=== PATIENT | male | born 1955 | race Caucasian/White ===

== ENCOUNTER 2016-07-17 13:43 | Inpatient (IN) | payer OTHER ==
[~2016-07-17] VITALS: Ht 167.6 cm; Wt 133.0 kg
[2016-07-17] MEDS ORDERED: SODIUM CHLORIDE 0.9% 1000ML 1,000 ML IV STA (14:12)
[2016-07-17] MEDS ORDERED: HYDROmorphone INJ 1 MG/ML SYR IV STA (14:13)
[2016-07-17] MEDS ORDERED: ACETAMINOPHEN 500 MG TAB PO STA (14:13)
[2016-07-17 14:20] LABS: BASO % 0.1 %; BASO ABS # 0.02 K/uL (0-0.2); COMPLETE YES; HEMATOCRIT 43.3 % (42-52); IG% 0.4 %; LYMPH % 19.5 %; LYMPH ABS # 2.71 K/uL (1.2-3.4); MEAN CELL VOLUME 87.8 fL (80-100); MEAN CORPUSCULAR HEMOGLOBIN 31.4 pg (25-34); MEAN CORPUSCULAR HGB CONC 35.8 g/dl (32-36); MEAN PLATELET VOLUME 10.6 fL (7.4-10.4); MONO % 10.8 %; NEUT % 69.2 %; PLATELET COUNT 193 K/uL (130-400); RED BLOOD COUNT 4.93 M/uL (4.7-6.1)
[2016-07-17 14:31] LABS: INR 1.1 (0.9-1.1); PROTHROMBIN TIME (PATIENT) 11.8 SECONDS (9.0-12.0)
[2016-07-17 14:34] LABS: ALT/SGPT 29 U/L (12-78); BLOOD UREA NITROGEN 16 mg/dl (7-18); BUN/CREATININE RATIO 12.2 (10-20); CARBON DIOXIDE 24 mmol/L (21-32); CHLORIDE 100 mmol/L (98-107); GLUCOSE 118 mg/dl (70-99); MAGNESIUM 1.8 mg/dl (1.8-2.4); POTASSIUM 3.7 mmol/L (3.5-5.1); SODIUM 136 mmol/L (136-145)
[2016-07-17] MEDS ORDERED: PIPERACILLIN/TAZOBACTAM 4.5 GM/100ML D5W IV STA (14:37)
[2016-07-17] MEDS ORDERED: VANCOMYCIN INJ 2,800 MG in SODIUM CHLORIDE 0.9% 500ML 500 ML IV STA (14:37)
[2016-07-17 14:39] LABS: ALKALINE PHOSPHATASE 60 U/L (45-117); AST/SGOT 20 U/L (15-37); CKMB/CK RATIO 0.2 (0-3.0)
[2016-07-17] MEDS ORDERED: ATOR-54 PO (14:48)
[2016-07-17] MEDS ORDERED: LISI-461 PO (14:48)
[2016-07-17] MEDS ORDERED: SITA50TA3 PO (14:48)
[2016-07-17] MEDS ORDERED: OMEP20TA PO (14:48)
[2016-07-17] MEDS ORDERED: CITA10TA8 PO (14:48)
[2016-07-17] MEDS ORDERED: GLIM4TAB2 PO (14:59)
[2016-07-17] MEDS ORDERED: BENZ100C84 PO (14:59)
[2016-07-17] MEDS ORDERED: PRED20TA PO (14:59)
[2016-07-17] MEDS ORDERED: LSN20 PO (14:59)
[2016-07-17] MEDS ORDERED: CITA40TA12 PO (14:59)
[2016-07-17] MEDS ORDERED: ATOR-24 PO (14:59)
[2016-07-17] MEDS ORDERED: SITA100T3 PO (14:59)
[2016-07-17 16:00] VITALS: O2SAT 95; Ht 167.6 cm; Wt 133.0 kg
[2016-07-17] MEDS ORDERED: ONDANSETRON INJ 2 MG/ML 2 ML VIAL IV PRN (16:00)
[2016-07-17] MEDS ORDERED: SILD1TAB39 PO (16:09)
[2016-07-17] MEDS ORDERED: TYL325X PO (16:10)
[2016-07-17] MEDS ORDERED: DEXTROSE 50% 50 ML SYR IV PRN (16:15)
[2016-07-17] MEDS ORDERED: GLUCOSE 40% GEL 15 GM TUBE PO PRN (16:15)
[2016-07-17] MEDS ORDERED: GLUCAGON FOR INJ 1 MG VIAL SQ PRN (16:15)
[2016-07-17] MEDS ORDERED: GLUCOSE 10 TABS/TUBE PO PRN (16:15)
[2016-07-17] MEDS ORDERED: VANCOMYCIN CONSULT ACTIVE PRN (16:45)
[2016-07-17] MEDS ORDERED: PIPERACILL/TAZOBAC CONSULT ACTIVE PRN (16:45)
[2016-07-17] MEDS ORDERED: MoRPHine SULFATE 4 MG/ML 1 ML CARP\\VIAL IV PRN (18:15)
--- NOTE | 2016-07-17 18:50 | History and Physical ---
History & Physical Date & Time of Service: Jul 17, 2016 at 15:56 Chief Complaint: Pain/Swelling/Hardness In Rt Groin Primary Care Physician: Michael Melendez D.O. History of Present Illness Source: patient, spouse ( at bedside), clinic records This is a 61 year old male with PMH of DM type 2, hypertension, obesity, depression, and other problems listed below who presents to the ED with right lower extremity pain. Approximately 4 days ago patient became ill with fever up to 103, postnasal drip, cough with white sputum, and right thigh "soreness". He was seen in clinic by Madhavi Wilkerson PA-C 3 days ago and was started on prednisone and Tessalon Perles for suspected viral illness. Influenza PCR was negative. Cough has improved. Patient did not mention the thigh pain in clinic because it was mild. Then over past few days thigh pain worsened and has become severe. Starting 2 days ago noticed erythema of the right thigh which has been increasing in area. He has a small healing abrasion on right anterior knee from scraping it on concrete while kneeling working in his garage. He persists with fever up to 103.2 at home this morning and 105 at an urgent care today before presenting to ER. He also reports chills, fatigue, and decreased PO intake, dizziness upon standing. Had dysuria a few days ago which resolved. Denies nasal congestion, ear ache, sore throat, chest pain, palpitations, SOB, nausea, vomiting, diarrhea, urinary frequency. He denies recent antibiotics or hospitalization. Past Medical/Surgical History Medical Problems: (1) Depression Status: Chronic (2) DM type 2 (diabetes mellitus, type 2) Status: Chronic (3) Hyperlipidemia Status: Chronic (4) Hypertension Status: Chronic (5) Renal cyst Status: Chronic Surgical Problems: (1) H/O colonoscopy with polypectomy Status: Chronic Family History Cardiac disorder MOTHER Diabetes mellitus MOTHER FH: cancer MOTHER (colon CA) Hypertension MOTHER Social History Smoking Status: Never Smoker Smokeless Tobacco Use: Yes (1 can per day) Alcohol Use: drinks once per week up to 12 beers in a day. counselled patient about cutting down or quitting alcohol. patient is agreeable. Drug Use: none Marital Status: Housing status: lives with significant other Occupational Status: employed (heavy truck driver) Allergies Coded Allergies: Aspirin (Verified Adverse Reaction, Unknown, vomiting, 07/17/16) Home Medications Scheduled Atorvastatin (Lipitor), 40 MG PO HS Citalopram Hydrobromide (Celexa), 40 MG PO HS Glimepiride (Glimepiride), 4 MG PO DAILY Lisinopril (Lisinopril), 20 MG PO DAILY Omeprazole (Omeprazole), 20 MG PO DAILY Prednisone (Prednisone), 2 TAB PO DAILY Sitagliptin Phosphate (Januvia), 100 MG PO DAILY Scheduled PRN Acetaminophen (Tylenol), 650 MG PO Q6 PRN for Pain or Fever Benzonatate (Tessalon Perles), 1 CAP PO TID PRN for Cough Sildenafil Citrate (Pulmonary (Sildenafil), 1 TAB PO UD PRN for intercourse Review of Systems Ten point ROS performed with pertinent positives and negatives noted in HPI. Physical Exam Vital Signs Date Time Temp Pulse Resp B/P Pulse Ox O2 Delivery O2 Flow Rate FiO2 07/17/16 15:36 77 18 142/67 96 Room Air 2.0 07/17/16 15:25 76 07/17/16 13:48 38.2 102 20 150/81 93 Room Air General Appearance: + obese, + pertinent finding (acutely ill appearing obese 61 year old male, not in distress) Head: normocephalic, atraumatic Eyes: normal inspection, PERRL, EOMI ENT: normal ENT inspection, hearing grossly normal, TMs normal, pharynx normal Neck: supple, trachea midline Respiratory/Chest: lungs clear, normal breath sounds, no respiratory distress, no accessory muscle use Cardiovascular: regular rate, rhythm, no murmur Abdomen/GI: normal bowel sounds, non tender, soft Extremities/Musculoskelatal: no pedal edema, + pertinent finding (no swelling of the right knee joint. right knee without pain on ROM) Neurologic/Psych: alert, normal mood/affect, oriented x 3, + pertinent finding (grossly nonfocal ) Skin: + pertinent finding (large area of erythema, warmth, and tenderness extending from anterior to medial and lateral right thigh. there is a small area of brighter erythema on the right medial thigh which is slightly indurated. no fluctuance appreciated. additionally on the anterior knee has a scabbed abrasion with small area of surrounding erthema and tenderness. ) Diagnostics Laboratory Results Results Past 24 Hours Test 3/18/17 14:00 Range/Units White Blood Count 13.90 4.8-10.8 K/uL Red Blood Count 4.93 4.7-6.1 M/uL Hemoglobin 15.5 14.0-18.0 g/dL Hematocrit 43.3 42-52 % Mean Corpuscular Volume 87.8 80-100 fL Mean Corpuscular Hemoglobin 31.4 25-34 pg Mean Corpuscular Hemoglobin Concent 35.8 32-36 g/dl Platelet Count 193 130-400 K/uL Mean Platelet Volume 10.6 7.4-10.4 fL Neutrophils (%) (Auto) 69.2 % Lymphocytes (%) (Auto) 19.5 % Monocytes (%) (Auto) 10.8 % Eosinophils (%) (Auto) 0.0 % Basophils (%) (Auto) 0.1 % Neutrophils # (Auto) 9.62 1.4-6.5 K/uL Lymphocytes # (Auto) 2.71 1.2-3.4 K/uL Monocytes # (Auto) 1.50 0.11-0.59 K/uL Eosinophils # (Auto) 0.00 0-0.5 K/uL Basophils # (Auto) 0.02 0-0.2 K/uL RDW Standard Deviation 44.9 36.4-46.3 fL RDW Coefficient of Variation 13.9 11.5-14.5 % Immature Granulocyte % (Auto) 0.4 % Immature Granulocyte # (Auto) 0.05 0.00-0.02 K/uL Prothrombin Time 11.8 9.0-12.0 SECONDS Prothromb Time International Ratio 1.1 0.9-1.1 Sodium Level 136 136-145 mmol/L Potassium Level 3.7 3.5-5.1 mmol/L Chloride Level 100 98-107 mmol/L Carbon Dioxide Level 24 21-32 mmol/L Anion Gap 12.0 3-11 mmol/L Blood Urea Nitrogen 16 7-18 mg/dl Creatinine 1.30 0.60-1.40 mg/dl Est Creatinine Clear Calc Drug Dose 76.1 ml/min Estimated GFR () 68.3 Estimated GFR (Non- 58.9 BUN/Creatinine Ratio 12.2 10-20 Random Glucose 118 70-99 mg/dl Calcium Level 9.0 8.5-10.1 mg/dl Magnesium Level 1.8 1.8-2.4 mg/dl Total Bilirubin 1.0 0.2-1 mg/dl Direct Bilirubin 0.2 0-0.2 mg/dl Aspartate Amino Transf (AST/SGOT) 20 15-37 U/L Alanine Aminotransferase (ALT/SGPT) 29 12-78 U/L Alkaline Phosphatase 60 45-117 U/L Total Creatine Kinase 315 39-308 U/L Creatine Kinase MB 0.5 0.5-3.6 ng/ml Creatine Kinase MB Ratio 0.2 0-3.0 Troponin I < 0.015 0-0.045 ng/ml Total Protein 7.8 6.4-8.2 gm/dl Albumin 3.7 3.4-5.0 gm/dl Microbiology Results 07/17/16 Blood Culture, Received Pending 07/17/16 Blood Culture, Received Pending Impression Assessment and Plan SEPSIS Secondary to RLE cellulitis Presents with tachycardia- resolved, fever, leukocytosis; no hypotension; lactic acid WNL Given Zosyn and vancomycin and 1 liter IVF's in ER Blood cultures pending Continue empiric Zosyn and vancomycin Check ultrasound of RLE to rule out abscess/ fluid collection DM TYPE 2 Hold oral agents Insulin sliding scale coverage Recent A1c in 06/2016 was 7.3 HYPERTENSION BP is stable Continue lisinopril DEPRESSION Stable, continue Celexa DYSLIPIDEMIA Continue statin FULL CODE DVT PROPHYLAXIS Heparin SQ Patient seen in collaboration with Dr. Dykes. Please see her addendum. I have seen, examined and discussed this patient with Esha Valderrama and I agree with the above note. Patient presents with fever and right thigh pain. Vitals notable for fever. PE: General- awake; alert; NAD Eyes- EOMI; no scleral icterus Neck- no stridor; trachea midline Lungs- CTA bilaterally; no wheezes/crackles Heart- RRR; no m/r/g Abdomen- soft; NT; nBS - no erythema/edema of scrotum Back- no gross abnormalities Extremities- no c/c/e; no deformity Neuro- no focal deficits Skin- large area of erythema, warmth of right inner thigh with central area of induration; no appreciable fluctuance Labs reviewed. Sepsis: Patient received IVF's in ED. Continue vancomycin and Zosyn for right thigh cellulitis. Blood cultures pending. Right thigh cellulitis: Continue vancomycin and Zosyn. Blood cultures pending. Ultrasound of thigh to evaluate for underlying fluid collection. Agree with remainder of plan as outlined above. VTE Prophylaxis VTE Risk Assessment Done? Y/N: Yes Risk Level: Moderate
[2016-07-17] MEDS: HYDROCODONE/ACETAMI 10/325 TAB PO PRN (18:54)
[2016-07-17 19:03] VITALS: BP 134/70; PULSE 86; TEMP 39.4; O2SAT 93
[2016-07-17] MEDS: CITALOPRAM 40 MG TAB PO SCH (19:41)
[2016-07-17] MEDS: ATORVASTATIN 40 MG TAB PO SCH (19:41)
[2016-07-17 20:00] VITALS: O2SAT 96
[2016-07-17 20:30] VITALS: TEMP 38.2
[2016-07-17] MEDS ORDERED: PNEUMOCOCCAL POLYSACCHARIDES 25 MCG/0.5 ML VIAL/SYR IM. ONE (20:30)
[2016-07-17] MEDS ORDERED: PNEUMOCOCCAL ADMINISTRATION CHARGE ONE (20:30)
--- NOTE | 2016-07-17 20:40 | EMERGENCY ROOM VISIT NOTE ---
History Report prepared by Chasidy: Ayala Nunez Under the Supervision of: Dr. Erasto Menezes M.D. First contact with patient: 14:06 Chief Complaint: GROIN PAIN Stated Complaint: PAIN/SWELLING/HARDNESS IN RT GROIN History of Present Illness The patient is a 61 year old male who presents to the Emergency Room with complaints of persistent pain in the upper right leg which started 2 days ago. He reports that the redness and pain started from an abrasion over his right knee. Over the last 2 days, the redness has spread up to his groin. He reports that it is painful and believes that it might be infected. He reports having a fever and feeling dizzy and lightheaded. His heart rate and blood sugars have been slightly elevated. He had some diarrhea today and loss of appetite. He denies any vomiting or abdominal pain. Source of History: patient Onset: 2 days ago Position: leg (right) Quality: other (pain) Timing: other (persistent) Associated Symptoms: + fevers, No abdominal pain, No vomiting Note: Pt reports dizziness, lightheadedness, loss of appetite. Review of Systems See HPI for pertinent positives & negatives. A total of 10 systems reviewed and were otherwise negative. Past Medical & Surgical Medical Problems: (1) Cellulitis (2) Depression (3) DM type 2 (diabetes mellitus, type 2) (4) Hyperlipidemia (5) Hypertension (6) Renal cyst (7) Sepsis Surgical Problems: (1) H/O colonoscopy with polypectomy Family History Patient reports no known family medical history. Social History Smoking Status: Never Smoker Marital Status: Housing Status: lives with family Occupation Status: employed Current/Historical Medications Scheduled Atorvastatin (Lipitor), 40 MG PO HS Citalopram Hydrobromide (Celexa), 40 MG PO HS Glimepiride (Glimepiride), 4 MG PO DAILY Lisinopril (Lisinopril), 20 MG PO DAILY Omeprazole (Omeprazole), 20 MG PO DAILY Prednisone (Prednisone), 2 TAB PO DAILY Sitagliptin Phosphate (Januvia), 100 MG PO DAILY Scheduled PRN Acetaminophen (Tylenol), 650 MG PO Q6 PRN for Pain or Fever Benzonatate (Tessalon Perles), 1 CAP PO TID PRN for Cough Sildenafil Citrate (Pulmonary (Sildenafil), 1 TAB PO UD PRN for intercourse Allergies Coded Allergies: Aspirin (Verified Adverse Reaction, Unknown, vomiting, 07/17/16) Physical Exam Vital Signs Date Time Temp Pulse Resp B/P Pulse Ox O2 Delivery O2 Flow Rate FiO2 07/17/16 15:36 36.8 77 18 142/67 96 Room Air 2.0 07/17/16 15:25 76 07/17/16 13:48 38.2 102 20 150/81 93 Room Air Physical Exam GENERAL: Patient is well appearing and in moderate distress. uncomfortable appearing HEENT: No acute trauma, normocephalic atraumatic, mucous membranes moist, no nasal congestion, no scleral icterus. NECK: No stridor, no adenopathy, no meningismus, trachea is midline. LUNGS: No dyspnea. Clear to auscultation and equal bilaterally. No wheeze, no rhonchi. HEART: Tachycardic rate and regular rhythm. No murmurs, rubs, gallops appreciated. ABDOMEN: Soft, nontender, bowel sounds positive, no masses appreciated, no peritonitis. BACK: No midline tenderness, no CVA tenderness EXTREMITIES: Normal motion all extremities, no cyanosis, no edema. NEUROLOGIC: Alert and oriented, no acute motor or sensory deficits, no focal weakness, cranial nerves grossly intact. SKIN: No jaundice, no diaphoresis. Tattoo on the left forearm. Large area of cellulitis extending from knee to groin on the right thigh over 50% of the thigh , markedly erythematous proximally with severe tenderness to palpation. Abrasion over the patella of the right knee with surrounding erythema. Medical Decision & Procedures Laboratory Results 07/17/16 14:00 Red Blood Count 4.93, Mean Corpuscular Volume 87.8, Mean Corpuscular Hemoglobin 31.4, Mean Corpuscular Hemoglobin Concent 35.8, Mean Platelet Volume 10.6, Neutrophils (%) (Auto) 69.2, Lymphocytes (%) (Auto) 19.5, Monocytes (%) (Auto) 10.8, Eosinophils (%) (Auto) 0.0, Basophils (%) (Auto) 0.1, Neutrophils # (Auto ) 9.62, Lymphocytes # (Auto) 2.71, Monocytes # (Auto) 1.50, Eosinophils # (Auto ) 0.00, Basophils # (Auto) 0.02 07/17/16 14:00 Test 07/17/16 14:00 White Blood Count 13.90 K/uL (4.8-10.8) Red Blood Count 4.93 M/uL (4.7-6.1) Hemoglobin 15.5 g/dL (14.0-18.0) Hematocrit 43.3 % (42-52) Mean Corpuscular Volume 87.8 fL (80-100) Mean Corpuscular Hemoglobin 31.4 pg (25-34) Mean Corpuscular Hemoglobin Concent 35.8 g/dl (32-36) Platelet Count 193 K/uL (130-400) Mean Platelet Volume 10.6 fL (7.4-10.4) Neutrophils (%) (Auto) 69.2 % Lymphocytes (%) (Auto) 19.5 % Monocytes (%) (Auto) 10.8 % Eosinophils (%) (Auto) 0.0 % Basophils (%) (Auto) 0.1 % Neutrophils # (Auto) 9.62 K/uL (1.4-6.5) Lymphocytes # (Auto) 2.71 K/uL (1.2-3.4) Monocytes # (Auto) 1.50 K/uL (0.11-0.59) Eosinophils # (Auto) 0.00 K/uL (0-0.5) Basophils # (Auto) 0.02 K/uL (0-0.2) RDW Standard Deviation 44.9 fL (36.4-46.3) RDW Coefficient of Variation 13.9 % (11.5-14.5) Immature Granulocyte % (Auto) 0.4 % Immature Granulocyte # (Auto) 0.05 K/uL (0.00-0.02) Prothrombin Time 11.8 SECONDS (9.0-12.0) Prothromb Time International Ratio 1.1 (0.9-1.1) Anion Gap 12.0 mmol/L (3-11) Est Creatinine Clear Calc Drug Dose 76.1 ml/min Estimated GFR () 68.3 Estimated GFR (Non- 58.9 BUN/Creatinine Ratio 12.2 (10-20) Calcium Level 9.0 mg/dl (8.5-10.1) Magnesium Level 1.8 mg/dl (1.8-2.4) Total Bilirubin 1.0 mg/dl (0.2-1) Direct Bilirubin 0.2 mg/dl (0-0.2) Aspartate Amino Transf (AST/SGOT) 20 U/L (15-37) Alanine Aminotransferase (ALT/SGPT) 29 U/L (12-78) Alkaline Phosphatase 60 U/L (45-117) Total Creatine Kinase 315 U/L (39-308) Creatine Kinase MB 0.5 ng/ml (0.5-3.6) Creatine Kinase MB Ratio 0.2 (0-3.0) Troponin I < 0.015 ng/ml (0-0.045) Total Protein 7.8 gm/dl (6.4-8.2) Albumin 3.7 gm/dl (3.4-5.0) Hepatitis C Antibody Screen NEG (NEG) Laboratory results as reviewed by me. Medications Administered Medications (Trade) Dose Ordered Sig/Georgi Route Start Time Stop Time Status Last Admin Dose Admin Sodium Chloride (Nss 1000ml) 1,000 ml @ 999 mls/hr Q1H1M STAT IV 07/17/16 14:12 07/17/16 15:12 DC 07/17/16 14:37 999 MLS/HR Hydromorphone HCl (Dilaudid Inj) 1 mg NOW STAT IV 07/17/16 14:13 07/17/16 14:14 DC 07/17/16 14:37 1 MG Acetaminophen (Tylenol Tab) 1,000 mg NOW STAT PO 07/17/16 14:13 07/17/16 14:15 DC 07/17/16 14:38 1,000 MG Piperacillin Sod/ Tazobactam Sod 4.5 gm 4.5 gm NOW STAT IV 07/17/16 14:37 07/17/16 14:39 DC 07/17/16 15:08 4.5 GM Vancomycin HCl/ Sodium Chloride (Vancomycin Inj/ Nss 500ml) 556 ml @ 200 mls/hr ONE STAT IV 07/17/16 14:37 07/17/16 17:23 DC 07/17/16 15:11 200 MLS/HR ECG Indication: tachycardia Rate (beats per minute): 84 Rhythm: sinus rhythm Findings: 1st degree AV block, no acute ischemic change, no ectopy ED Course 1408: The patient was evaluated in room C6. A complete history and physical exam was performed. 1412: NSS 1000 ml @ 999 mls/hr IV. 1413: Acetaminophen 1000 mg PO, Dilaudid Inj 1 mg IV. 1434: I reevaluated the patient. His heart rate and pain is improving after fluids and Dilaudid. 1437: Vancomycin HCL 2800 mg/Sodium Chloride 556 ml @ 200 mls/hr IV, Zosyn IV 4.5 gm IV. 1451: I discussed the patient's case with KAITLYNN Rodriguez. The patient will be evaluated for further management. 1457: Upon reevaluation, the patient is doing well. Discussed results and treatment plan with the patient. He verbalized understanding and agreement with the treatment plan. The patient will be evaluated for further management. Medical Decision Differential diagnoses: cellulitis, abscess , sepsis, DVT, allergic reaction, Kaylee's. 61 yr old male with DMII who arrives for evaluation of right thigh cellulitis. This is quite extensive, he has fever, tachy and elevated WBC meeting sepsis criteria. He does not have evidence of septic shock at this time. Given fluids , empiric abx. Pain meds helped well with discomfort. No clear evidence of abscess by exam though may need further imaging. No evidence of DVT by examination. With sepsis and PMH along with extent of cellulitis will need to come in for further treatment and evaluation. Consults Time Called: [phone] Consulting Physician: KAITLYNN Rodriguez Returned Call: [phone] Discussed the patient's case. The patient will be evaluated for further treatment and disposition. Impression Primary Impression: Cellulitis of right leg Additional Impression: Sepsis Scribe Attestation The scribe's documentation has been prepared under my direction and personally reviewed by me in its entirety. I confirm that the note above accurately reflects all work, treatment, procedures, and medical decision making performed by me. Departure Information Dispostion Being Evaluated By Hospitalist Referrals Michael Melendez D.O. (PCP) Patient Instructions My [facility] Problem Qualifiers Additional Impression: Sepsis Sepsis type: sepsis due to unspecified organism Qualified Codes: A41.9 - Sepsis, unspecified organism
--- NOTE | 2016-07-17 21:06 | Pharmacy Progress Note ---
Pharmacy Antibiotic Consult Date of Service: Jul 17, 2016. Pharmacy Dosing Scope Pharmacy is consulted to initiate Vancomycin and Zosyn IV dosing therapies for sepsis secondary to cellulitis in an obese patient (BMI greater than 35kg/m2; BMI= 46kg/m2), order appropriate labs and adjust drug dose/frequency. Subjective The patient is a 61 year old male admitted on Jul 17, 2016 at 15:37. Objective Height (Feet): 5 Height (Inches): 6.00 Weight (Kilograms): 129.900 Lab Results (24hrs): Laboratory Tests Test 07/17/16 14:00 BUN/Creatinine Ratio 12.2 Blood Urea Nitrogen 16 mg/dl Creatinine 1.30 mg/dl White Blood Count 13.90 K/uL Red Blood Count 4.93 M/uL Hemoglobin 15.5 g/dL Hematocrit 43.3 % Mean Corpuscular Volume 87.8 fL Mean Corpuscular Hemoglobin 31.4 pg Mean Corpuscular Hemoglobin Concent 35.8 g/dl Platelet Count 193 K/uL Mean Platelet Volume 10.6 fL Neutrophils (%) (Auto) 69.2 % Lymphocytes (%) (Auto) 19.5 % Monocytes (%) (Auto) 10.8 % Eosinophils (%) (Auto) 0.0 % Basophils (%) (Auto) 0.1 % Neutrophils # (Auto) 9.62 K/uL Lymphocytes # (Auto) 2.71 K/uL Monocytes # (Auto) 1.50 K/uL Eosinophils # (Auto) 0.00 K/uL Basophils # (Auto) 0.02 K/uL Micro Results: Item Value Date Time Blood Culture Received 07/17/16 1420 Blood Pending Blood Culture Received 07/17/16 1400 Blood Pending Recent Pertinent Medications Item Value Date Time Piperacillin Sod/ 4.5 gm 07/17/16 1437 Tazobactam Sod NOW STAT/IV 07/17/16 1508 (Zosyn Iv) Vancomycin HCl 556 ml @ 200 mls/hr 07/17/16 1437 2800 mg/Sodium ONE STAT/IV 07/17/16 1511 Chloride Assessment & Plan Pharmacy is consulted to initiate Vancomycin and Zosyn IV dosing therapies for sepsis secondary to cellulitis in an obese patient (BMI greater than 35kg/m2; BMI= 46kg/m2). VANCOMYCIN Loading dose: Vancomycin 2800 mg (~22mg/kg) IV X 1 dose in the ED then: Vancomycin 1700 mg (~13mg/kg) IV every 12 hours. * Due to patient's obese nature, Vancomycin weight based dose to be less than the recommended 15mg/kg in order to prevent Vancomycin accumulation and toxicity. * Estimated P'Kinetic levels: ke= 0.0676/hr, t1/2= 10 hrs * Goal trough level estimate: between 15 - 20 mcg/mL. * Trough level has been ordered for: ~30 minutes before the 4th dose. ZOSYN * Zosyn 4.5gm IV x 1 dose, the Zosyn 4.5gm IV every 8 hours extended infusion for sepsis / cellulitis in an obese patient with a CrCl greater than 20mL/min ( CrCl ~76mL/min). Pharmacy will continue to follow and will adjust dose/frequency as necessary. Thank you
--- NOTE | 2016-07-17 21:39 | DIAGNOSTIC IMAGING REPORT ---
Ultrasound right lower extremity RIGHT EXTREMITY NONVASCULAR LIMITED CLINICAL HISTORY: RLE cellulitis rule out abscess Right cellulitis TECHNIQUE: Ultrasound COMPARISON STUDY: None FINDINGS: Soft tissue edema within the right inguinal and thigh region. No evidence for abscess or collection IMPRESSION: Soft tissue edema. No evidence for abscess or collection Electronically signed by: Guzman King M.D. 07/17/2016 9:37 PM Dictated Date/Time: 07/17/2016 9:36 PM
[2016-07-17] MEDS: PIPERACILL/TAZOBAC IV 4.5 GM in DEXTROSE 5% 100ML IV SCH (23:11)
[2016-07-17] MEDS: INSULIN ASPART 100 UNITS/ML 3 ML PEN SC SCH (23:21)
[2016-07-17] MEDS: HEPARIN SOD 5000 UNIT/0.5 ML CARP SQ SCH (23:22)
[2016-07-17 23:42] VITALS: TEMP 37.1
[2016-07-18] VITALS (9 sets, daily range): BP systolic 105–147; BP diastolic 65–83; PULSE 79–88; TEMP 36.9–38.9; O2SAT 91–96
[2016-07-18] MEDS: VANCOMYCIN INJ 1,700 MG in SODIUM CHLORIDE 0.9% 500ML 500 ML IV SCH ×2 (02:27→13:46)
[2016-07-18] MEDS: HYDROCODONE/ACETAMI 10/325 TAB PO PRN ×4 (03:01→23:25)
[2016-07-18] MEDS: PIPERACILL/TAZOBAC IV 4.5 GM in DEXTROSE 5% 100ML IV SCH ×3 (05:44→23:06)
[2016-07-18] MEDS: HEPARIN SOD 5000 UNIT/0.5 ML CARP SQ SCH ×3 (05:47→23:05)
[2016-07-18 05:58] LABS: HEMATOCRIT 43.3 % (42-52); MEAN CELL VOLUME 87.3 fL (80-100); MEAN CORPUSCULAR HEMOGLOBIN 29.8 pg (25-34); MEAN CORPUSCULAR HGB CONC 34.2 g/dl (32-36); MEAN PLATELET VOLUME 10.6 fL (7.4-10.4); PLATELET COUNT 167 K/uL (130-400); RED BLOOD COUNT 4.96 M/uL (4.7-6.1); WHITE BLOOD COUNT 17.61 K/uL (4.8-10.8)
[2016-07-18 06:33] LABS: BUN/CREATININE RATIO 13.2 (10-20); CREATININE 1.6 mg/dl (0.60-1.40); POTASSIUM 3.7 mmol/L (3.5-5.1)
[2016-07-18] MEDS: LISINOPRIL 20 MG TAB PO SCH (08:21)
[2016-07-18] MEDS: PANTOprazole SOD 40 MG TAB PO SCH (08:21)
[2016-07-18] MEDS: INSULIN ASPART 100 UNITS/ML 3 ML PEN SC SCH ×4 (08:57→23:04)
[2016-07-18] MEDS ORDERED: HydrALAZINE HCL 20 MG/ML VIAL IV. PRN (09:30)
[2016-07-18] MEDS: SODIUM CHLORIDE 0.9% 1000ML 1,000 ML IV SCH (09:35)
[2016-07-18] MEDS: BENZONATATE 100MG CAP PO PRN ×2 (12:36→20:20)
--- NOTE | 2016-07-18 17:33 | Progress Note ---
Internal Med Progress Note Date of Service: Jul 18, 2016. Provider Documentation: SUBJECTIVE: still having pain in his right groin and thigh region mild temp spikes denies chest pain o sob feeling weak eating ok OBJECTIVE: Vital Signs-as noted below Exam: General-alert and oriented. Obese ENT-normal hearing Neck-no neck masses Lungs-cta b/l no wheezing no crackles Heart-s1 and s2 heard, regular rate and rhythm no murmurs Abdomen-soft bowel sounds present non tender no distension Extremities-erythematous changes involving anterior and medial thigh Neuro-alert and awake moves extremities Lab data as noted below. ASSESSMENT & PLAN: 61M with hx of DM presents with sepsis form cellulitis of RLE. SEPSIS RLE cellulitis on Empiric Zosyn and vancomycin#2 slow improvement cx pending on gentle fluids will monitor DM TYPE 2 Holding oral agents on Insulin sliding scale coverage Recent A1c in 06/2016 was 7.3 will monitor ARF cr 1.6 today holding lisinopril on gentle fluids f/u labs in am HYPERTENSION Holding lisinopril for ARF iv hydralazine prn DEPRESSION Stable on Celexa DYSLIPIDEMIA On statin FULL CODE DVT PROPHYLAXIS Heparin SQ Disposition to be determined Expect to discharge home and followup with PCP. Vital Signs: Date Time Temp Pulse Resp B/P Pulse Ox O2 Delivery O2 Flow Rate FiO2 07/18/16 16:00 Room Air 07/18/16 14:59 37.8 88 18 105/68 93 07/18/16 12:00 Room Air 07/18/16 11:49 37.7 79 16 118/66 91 Room Air 07/18/16 08:23 37.0 147/83 07/18/16 08:00 Room Air 07/18/16 07:21 38.9 83 16 127/66 94 Room Air 07/18/16 06:10 37.0 84 20 125/77 92 Room Air 07/18/16 04:00 96 Nasal Cannula 2.0 07/18/16 00:00 96 Nasal Cannula 2.0 07/17/16 23:42 37.1 07/17/16 20:30 38.2 07/17/16 20:00 96 Nasal Cannula 2.0 07/17/16 19:03 39.4 86 20 134/70 93 Lab Results: Results Past 24 Hours Test 07/17/16 19:57 07/18/16 05:40 07/18/16 11:39 07/18/16 16:12 Range/Units Bedside Glucose 164 206 164 70-99 mg/dl White Blood Count 17.61 4.8-10.8 K/uL Red Blood Count 4.96 4.7-6.1 M/uL Hemoglobin 14.8 14.0-18.0 g/dL Hematocrit 43.3 42-52 % Mean Corpuscular Volume 87.3 80-100 fL Mean Corpuscular Hemoglobin 29.8 25-34 pg Mean Corpuscular Hemoglobin Concent 34.2 32-36 g/dl RDW Standard Deviation 44.5 36.4-46.3 fL RDW Coefficient of Variation 13.9 11.5-14.5 % Platelet Count 167 130-400 K/uL Mean Platelet Volume 10.6 7.4-10.4 fL Sodium Level 135 136-145 mmol/L Potassium Level 3.7 3.5-5.1 mmol/L Chloride Level 99 98-107 mmol/L Carbon Dioxide Level 27 21-32 mmol/L Anion Gap 9.0 3-11 mmol/L Blood Urea Nitrogen 21 7-18 mg/dl Creatinine 1.60 0.60-1.40 mg/dl Est Creatinine Clear Calc Drug Dose 61.9 ml/min Estimated GFR () 53.1 Estimated GFR (Non- 45.8 BUN/Creatinine Ratio 13.2 10-20 Random Glucose 196 70-99 mg/dl Calcium Level 8.0 8.5-10.1 mg/dl
[2016-07-18] MEDS: CITALOPRAM 40 MG TAB PO SCH (20:14)
[2016-07-18] MEDS: ATORVASTATIN 40 MG TAB PO SCH (20:15)
[2016-07-18] MEDS: ACETAMINOPHEN 325 MG TAB PO PRN (20:20)
[2016-07-19] VITALS (7 sets, daily range): BP systolic 99–135; BP diastolic 63–74; PULSE 62–78; TEMP 36.9–37.8; O2SAT 93–96
[2016-07-19] MEDS ORDERED: VANCOMYCIN TROUGH SCH (01:30)
[2016-07-19] MEDS: VANCOMYCIN INJ 1,700 MG in SODIUM CHLORIDE 0.9% 500ML 500 ML IV SCH ×2 (02:23→14:04)
[2016-07-19] MEDS: PIPERACILL/TAZOBAC IV 4.5 GM in DEXTROSE 5% 100ML IV SCH ×3 (05:16→22:09)
[2016-07-19] MEDS: SODIUM CHLORIDE 0.9% 1000ML 1,000 ML IV SCH ×2 (05:17→10:46)
[2016-07-19] MEDS: HEPARIN SOD 5000 UNIT/0.5 ML CARP SQ SCH ×3 (05:19→22:11)
[2016-07-19 06:42] LABS: CREATININE 1.6 mg/dl (0.60-1.40)
[2016-07-19 07:31] LABS: ESTIMATED AVERAGE GLUCOSE 171 mg/dl; HA1C FLAG Normal (Normal)
[2016-07-19] MEDS: ACETAMINOPHEN 325 MG TAB PO PRN ×3 (07:48→20:40)
[2016-07-19] MEDS: PANTOprazole SOD 40 MG TAB PO SCH (07:48)
[2016-07-19] MEDS: INSULIN ASPART 100 UNITS/ML 3 ML PEN SC SCH ×4 (08:31→22:12)
[2016-07-19] MEDS: HYDROCODONE/ACETAMI 10/325 TAB PO PRN (12:30)
--- NOTE | 2016-07-19 13:00 | Pharmacy Progress Note ---
Pharmacy Antibiotic Prog Note Date of Service: Jul 19, 2016. Subjective: The patient is currently receiving the following antimicrobial therapy for treatment of RLE cellulitis: * Vancomycin 1700 mg IV every 12 hours * Zosyn 4.5 g IV every 8 hours The patient is currently on day # 4 of IV therapy. Objective: Height (Feet): 5 Height (Inches): 6.00 Weight (Kilograms): 133.000 Levels: Item Value Date Time Vancomycin Level Trough 13.1 mcg/ml 07/19/16 0130 Lab Results (24hrs): Laboratory Tests Test 07/19/16 05:15 Creatinine 1.60 mg/dl Micro Results: Item Value Date Time Blood Culture - Preliminary Resulted 07/17/16 1400 Blood NO GROWTH TO DATE. Blood Culture - Preliminary Resulted 07/17/16 1420 Blood NO GROWTH TO DATE. Assessment & Plan: Assessment 61 year old male admitted with sepsis secondary to RLE cellulitis (patient was tachycardic and febrile with leukocytosis at the time of admission). 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 Patient had a fever this am. Plan Vancomycin + Zosyn for treatment of RLE cellulitis Vancomycin * Trough level of 13.1 mcg/mL is near therapeutic. * Goal trough level estimate: between 15 - 20 mcg/mL. * I will continue dose of 1700 mg (13 mg/kg) IV every 12 hours for now. I suspect patient will start to accumulate drug over the next 24 hours due to obesity and rise in Scr from 1.3 to 1.6 mg/dL. * Trough level has been ordered for: . Zosyn * Continue 4.5 g IV every 8 hours for CrCl greater than 20 mL/min. Pharmacy will continue to follow and will adjust dose/frequency as necessary. Thank you
--- NOTE | 2016-07-19 17:16 | Progress Note ---
Medicine Progress Note Date & Time of Visit: Jul 19, 2016 at 16:56. 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 Last 24h: fever yesterday am and this morning to 100.4F Tolerating PO, no nausea, chest pain, trouble breathing, or leg pain outside of area of cellulitis This area of redness has spread beyond the line but may be normal healing process as he reports it feels much better than admission. 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 Pt agrees this is a likely etiology. Objective Last 8 Hrs Date Time Temp Pulse Resp B/P Pulse Ox O2 Delivery O2 Flow Rate FiO2 07/19/16 15:59 37.1 69 18 116/70 94 Room Air 07/19/16 12:05 37.5 76 18 121/74 96 Room Air 07/19/16 12:00 Room Air Physical Exam: GEN: WNWD, in no acute distress, alert and appropriate HEENT: NC/AT, normal sclerae CARDIO: reg rate, S1/2 heard without m/g/r LUNGS: CTA bilaterally, no crackles, rales or wheezes, good diaphragmatic excursion ABD: soft, non-tender, non-distended, no rebound or guarding, +BS EXTREMITY: RP and DP palpable 2+ bilat, no LE swelling or edema, extremities are warm and well-perfused R THIGH: area of significant redness that encompasses his entire anteriomedial thigh-does not cross inguinal line and doesn't extend posteriorly on the thigh and doesn't go all the way down to the knee; stops around mid- thigh. Area has two vesicles near inguinal ligament that are not draining and appear to contain serous fluid. Area underneath this is hot and indurated. NEURO: CN 2-12 grossly intact, sensation intact throughout MUSC: 5/5 strength throughout, no focal deficits SKIN: warm and dry and wound as above. Laboratory Results: 07/18/16 05:40 07/18/16 05:40 07/19/16 05:15 Test 07/17/16 14:00 07/17/16 14:29 07/18/16 05:40 07/19/16 01:30 Immature Granulocyte % (Auto) 0.4 % White Blood Count 13.90 K/uL (4.8-10.8) Red Blood Count 4.93 M/uL (4.7-6.1) 4.96 M/uL (4.7-6.1) Hemoglobin 15.5 g/dL (14.0-18.0) Hematocrit 43.3 % (42-52) Mean Corpuscular Volume 87.8 fL (80-100) 87.3 fL (80-100) Mean Corpuscular Hemoglobin 31.4 pg (25-34) 29.8 pg (25-34) Mean Corpuscular Hemoglobin Concent 35.8 g/dl (32-36) 34.2 g/dl (32-36) Platelet Count 193 K/uL (130-400) Mean Platelet Volume 10.6 fL (7.4-10.4) 10.6 fL (7.4-10.4) Neutrophils (%) (Auto) 69.2 % Lymphocytes (%) (Auto) 19.5 % Monocytes (%) (Auto) 10.8 % Eosinophils (%) (Auto) 0.0 % Basophils (%) (Auto) 0.1 % Neutrophils # (Auto) 9.62 K/uL (1.4-6.5) Lymphocytes # (Auto) 2.71 K/uL (1.2-3.4) Monocytes # (Auto) 1.50 K/uL (0.11-0.59) Eosinophils # (Auto) 0.00 K/uL (0-0.5) Basophils # (Auto) 0.02 K/uL (0-0.2) Immature Granulocyte # (Auto) 0.05 K/uL (0.00-0.02) Prothrombin Time 11.8 SECONDS (9.0-12.0) Prothromb Time International Ratio 1.1 (0.9-1.1) Magnesium Level 1.8 mg/dl (1.8-2.4) Total Bilirubin 1.0 mg/dl (0.2-1) Direct Bilirubin 0.2 mg/dl (0-0.2) Aspartate Amino Transf (AST/SGOT) 20 U/L (15-37) Alanine Aminotransferase (ALT/SGPT) 29 U/L (12-78) Alkaline Phosphatase 60 U/L (45-117) Total Creatine Kinase 315 U/L (39-308) Creatine Kinase MB 0.5 ng/ml (0.5-3.6) Creatine Kinase MB Ratio 0.2 (0-3.0) Troponin I < 0.015 ng/ml (0-0.045) Total Protein 7.8 gm/dl (6.4-8.2) Albumin 3.7 gm/dl (3.4-5.0) Hepatitis C Antibody Screen NEG (NEG) Bedside Lactic Acid Venous 1.40 mmol/L (0.90-1.70) RDW Standard Deviation 44.5 fL (36.4-46.3) RDW Coefficient of Variation 13.9 % (11.5-14.5) Anion Gap 9.0 mmol/L (3-11) BUN/Creatinine Ratio 13.2 (10-20) Calcium Level 8.0 mg/dl (8.5-10.1) Vancomycin Level Trough 13.1 mcg/ml (SEE COMMENT) Test 07/19/16 05:15 07/19/16 16:33 Est Creatinine Clear Calc Drug Dose 62.2 ml/min Estimated GFR () 53.1 Estimated GFR (Non- 45.8 Estimated Average Glucose 171 mg/dl Hemoglobin A1c 7.6 % (4.5-5.6) Bedside Glucose 164 mg/dl (70-99) Date/Time Source Procedure Growth Status 07/17/16 14:20 Blood Blood Culture - Preliminary NO GROWTH TO DATE. Resulted Last 24 Hours Test 07/18/16 20:24 07/19/16 01:30 07/19/16 05:15 07/19/16 07:22 Bedside Glucose 179 mg/dl 166 mg/dl Vancomycin Level Trough 13.1 mcg/ml Creatinine 1.60 mg/dl Est Creatinine Clear Calc Drug Dose 62.2 ml/min Estimated GFR () 53.1 Estimated GFR (Non- 45.8 Estimated Average Glucose 171 mg/dl Hemoglobin A1c 7.6 % Test 07/19/16 11:25 07/19/16 16:33 Bedside Glucose 179 mg/dl 164 mg/dl Diagnostic Imaging: US nonvascular RLE: IMPRESSION: Soft tissue edema. 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 1. RLE cellulitis-resuscitated from a sepsis standpoint. Cellulitis appears to be healing and feels improved to the patient. Cont IV Vanc and Zosyn at this time. BCx are negative and he is hemodynamically stable. Will transfer off telemetry at this time and cont to treat fevers which are occurring every morning and an expected part of the healing process looking at the severity of the wound. It appears this wound originated from chafing (as evidenced by the blistering) that was repetitive while driving his truck to and from [place] recently. 2. DMII-cont ISS coverage and appreciate inpatient glycemic pharmacist management 3. SUMEET-creat 1. on admission with normal baseline. Pt is tolerating PO, drinking water and has had IVF since admission. Stopping IVF and will reassess PRP in am. 4. HTN-Controlled, holding lisinopril in setting of SUMEET 5. Depression-stable on Celexa 6. Hyperlipidemia-cont Lipitor per home regimen FULL CODE DVT PROPHYLAXIS Heparin SQ Dispo-cont IV abx while continuing to fever and until redness starts to clear. May be a couple more days as an inpatient. Expect him to go home without home support needed. DO Juan Canokirkbride [facility] Hospitalist Continued [facility] stay due to: fever, multiple IV medications needed Discharge planning: home Current Inpatient Medications: Current Inpatient Medications Medications (Trade) Dose Ordered Sig/Georgi Route Start Time Stop Time Status Last Admin Dose Admin Acetaminophen (Tylenol Tab) 650 mg Q4H PRN PO 07/17/16 16:00 08/16/16 15:59 07/19/16 14:05 650 MG Ondansetron HCl (Zofran Inj) 4 mg Q6H PRN IV 07/17/16 16:00 08/16/16 15:59 Piperacillin Sod/ Tazobactam Sod (Consult) 1 ea UD PRN N/A 07/17/16 16:45 08/16/16 16:44 Vancomycin HCl (Consult) 1 ea UD PRN N/A 07/17/16 16:45 08/16/16 16:44 Insulin Aspart (novoLOG ASPART) SLIDING SCALE If C... ACHS SC 07/17/16 21:00 08/16/16 20:59 07/19/16 12:32 5 UNITS Glucose (Glucose 40% Gel) 15-30 GRAMS 15 GRAMS... UD PRN PO 07/17/16 16:15 08/16/16 16:14 Glucose (Glucose Chew Tab) 4-8 Tablets 4 Tabl... UD PRN PO 07/17/16 16:15 08/16/16 16:14 Dextrose (Dextrose 50% 50ML Syringe) 25-50ML OF 50% DW IV FOR... UD PRN IV 07/17/16 16:15 08/16/16 16:14 Glucagon (Glucagon Inj) 1 mg UD PRN SQ 07/17/16 16:15 08/16/16 16:14 Atorvastatin Calcium (Lipitor Tab) 40 mg HS PO 07/17/16 21:00 08/16/16 20:59 07/18/16 20:15 40 MG Benzonatate (Tessalon Perles Cap) 100 mg TID PRN PO 07/17/16 16:15 08/16/16 16:14 07/18/16 20:20 100 MG Citalopram Hydrobromide (celeXA TAB) 40 mg HS PO 07/17/16 21:00 08/16/16 20:59 07/18/16 20:14 40 MG Lisinopril (Zestril Tab) 20 mg DAILY PO 07/18/16 09:00 08/17/16 08:59 Future Hold 07/18/16 08:21 20 MG Pantoprazole Sodium (Protonix Tab) 40 mg QAM PO 07/18/16 09:00 08/17/16 08:59 07/19/16 07:48 40 MG Heparin Sodium (Porcine) 5000 unit 5,000 unit Q8 SQ 07/17/16 22:00 08/16/16 21:59 07/19/16 14:06 5,000 UNIT Piperacillin Sod/ Tazobactam Sod/ Dextrose (Zosyn Iv/D5 100ml) 120 ml @ 30 mls/hr Q8H IV 07/17/16 22:00 07/27/16 13:59 07/19/16 14:04 30 MLS/HR Morphine Sulfate (MoRPHine SULFATE INJ) 4 mg Q4 PRN IV 07/17/16 18:15 07/31/16 18:14 Acetaminophen/ Hydrocodone Bitart 1 tab 1 tab Q6 PRN PO 07/17/16 18:15 07/31/16 18:14 07/19/16 12:30 1 TAB Vancomycin HCl/ Sodium Chloride (Vancomycin Inj/ Nss 500ml) 534 ml @ 200 mls/hr Q12H IV 07/18/16 02:00 07/28/16 01:59 07/19/16 14:04 200 MLS/HR Hydralazine HCl 5 mg 5 mg Q6 PRN IV. 07/18/16 09:30 08/17/16 09:29 Sodium Chloride (Nss 1000ml) 1,000 ml @ 80 mls/hr [id number] IV 07/18/16 09:30 08/17/16 09:29 07/19/16 10:46 80 MLS/HR
[2016-07-19] MEDS ORDERED: GABAPENTIN 600 MG TAB PO SCH (20:15)
[2016-07-19] MEDS ORDERED: LORAZEPAM 1 MG TAB PO PRN (20:15)
[2016-07-19] MEDS ORDERED: LORAZEPAM 2 MG/ML 1 ML VIAL IV PRN (20:15)
[2016-07-19] MEDS: ATORVASTATIN 40 MG TAB PO SCH (20:41)
[2016-07-19] MEDS: CITALOPRAM 40 MG TAB PO SCH (20:41)
[2016-07-19] MEDS: BENZONATATE 100MG CAP PO PRN (20:41)
[2016-07-19] MEDS ORDERED: MULTI-VITAMIN INFUSION INJ 10 ML, THIAMINE HCL INJ 100 MG, FoLIC ACID INJ 1 MG in SODIU... IV ONE (21:00)
[2016-07-19] MEDS ORDERED: GABAPENTIN 1200MG LOADING DOSE PO SCH (22:00)
[2016-07-20] VITALS (7 sets, daily range): BP systolic 101–134; BP diastolic 58–85; PULSE 53–76; TEMP 36.8–37.6; O2SAT 93–97
[2016-07-20] MEDS: VANCOMYCIN INJ 1,700 MG in SODIUM CHLORIDE 0.9% 500ML 500 ML IV SCH ×2 (02:29→15:03)
[2016-07-20] MEDS: GABAPENTIN 600MG Q6H DOSE PO SCH ×2 (04:00→10:00)
[2016-07-20] MEDS: PIPERACILL/TAZOBAC IV 4.5 GM in DEXTROSE 5% 100ML IV SCH ×3 (06:02→22:11)
[2016-07-20 06:04] LABS: BASO % 0.3 %; BASO ABS # 0.03 K/uL (0-0.2); COMPLETE YES; EOS % 1.1 %; HEMATOCRIT 35.5 % (42-52); IG% 0.7 %; LYMPH % 15.5 %; MEAN CELL VOLUME 86.6 fL (80-100); MEAN CORPUSCULAR HGB CONC 34.6 g/dl (32-36); MONO % 6.3 %; NEUT % 76.1 %; PLATELET COUNT 159 K/uL (130-400); WHITE BLOOD COUNT 10.32 K/uL (4.8-10.8)
[2016-07-20] MEDS: HEPARIN SOD 5000 UNIT/0.5 ML CARP SQ SCH ×3 (06:05→22:17)
[2016-07-20 06:40] LABS: BUN/CREATININE RATIO 11.2 (10-20); CREATININE 1.4 mg/dl (0.60-1.40); POTASSIUM 3.7 mmol/L (3.5-5.1)
--- NOTE | 2016-07-20 07:57 | Progress Note ---
Internal Med Progress Note Date of Service: Jul 20, 2016. Provider Documentation: confided to RN last night about daily consumption 0f 5-6 beers/day. AWSS/DT precautions instituted . Will relay to AM provider. Vital Signs: Date Time Temp Pulse Resp B/P Pulse Ox O2 Delivery O2 Flow Rate FiO2 07/20/16 07:25 36.8 73 16 134/85 94 Room Air 07/20/16 03:48 36.9 76 18 131/64 93 Room Air 07/20/16 00:00 Room Air 07/19/16 23:42 36.9 62 16 131/72 93 07/19/16 22:20 37.0 07/19/16 20:00 Room Air 07/19/16 16:00 Room Air 07/19/16 15:59 37.1 69 18 116/70 94 Room Air 07/19/16 12:05 37.5 76 18 121/74 96 Room Air 07/19/16 12:00 Room Air 07/19/16 08:00 Room Air Lab Results: Results Past 24 Hours Test 07/19/16 11:25 07/19/16 16:33 07/19/16 20:23 07/20/16 05:33 Range/Units Bedside Glucose 179 164 159 70-99 mg/dl White Blood Count 10.32 4.8-10.8 K/uL Red Blood Count 4.10 4.7-6.1 M/uL Hemoglobin 12.3 14.0-18.0 g/dL Hematocrit 35.5 42-52 % Mean Corpuscular Volume 86.6 80-100 fL Mean Corpuscular Hemoglobin 30.0 25-34 pg Mean Corpuscular Hemoglobin Concent 34.6 32-36 g/dl Platelet Count 159 130-400 K/uL Mean Platelet Volume 11.0 7.4-10.4 fL Neutrophils (%) (Auto) 76.1 % Lymphocytes (%) (Auto) 15.5 % Monocytes (%) (Auto) 6.3 % Eosinophils (%) (Auto) 1.1 % Basophils (%) (Auto) 0.3 % Neutrophils # (Auto) 7.86 1.4-6.5 K/uL Lymphocytes # (Auto) 1.60 1.2-3.4 K/uL Monocytes # (Auto) 0.65 0.11-0.59 K/uL Eosinophils # (Auto) 0.11 0-0.5 K/uL Basophils # (Auto) 0.03 0-0.2 K/uL RDW Standard Deviation 44.4 36.4-46.3 fL RDW Coefficient of Variation 13.9 11.5-14.5 % Immature Granulocyte % (Auto) 0.7 % Immature Granulocyte # (Auto) 0.07 0.00-0.02 K/uL Sodium Level 137 136-145 mmol/L Potassium Level 3.7 3.5-5.1 mmol/L Chloride Level 100 98-107 mmol/L Carbon Dioxide Level 30 21-32 mmol/L Anion Gap 7.0 3-11 mmol/L Blood Urea Nitrogen 16 7-18 mg/dl Creatinine 1.40 0.60-1.40 mg/dl Est Creatinine Clear Calc Drug Dose 71.7 ml/min Estimated GFR () 62.4 Estimated GFR (Non- 53.8 BUN/Creatinine Ratio 11.2 10-20 Random Glucose 143 70-99 mg/dl Calcium Level 8.0 8.5-10.1 mg/dl Test 07/20/16 07:29 Range/Units Bedside Glucose 144 70-99 mg/dl
[2016-07-20] MEDS: MULTIVITAMIN TAB PO SCH (08:15)
[2016-07-20] MEDS: THIAMINE HCL 100 MG TAB PO SCH (08:15)
[2016-07-20] MEDS: PANTOprazole SOD 40 MG TAB PO SCH (08:16)
[2016-07-20] MEDS: INSULIN ASPART 100 UNITS/ML 3 ML PEN SC SCH ×4 (08:20→21:00)
[2016-07-20] MEDS ORDERED: CALCIUM GLUCONATE 10% 1,000 MG in SODIUM CHLORIDE 0.9% 50ML 50 ML IV ONE (09:30)
[2016-07-20] MEDS ORDERED: VANCOMYCIN TROUGH SCH (13:30)
--- NOTE | 2016-07-20 15:43 | Pharmacy Progress Note ---
Pharmacy Antibiotic Prog Note Date of Service: Jul 20, 2016. Subjective: The patient is currently receiving the following antimicrobial therapy for treatment of RLE cellulitis: Vancomycin 1700 mg IV every 12 hours Zosyn 4.5 g IV every 8 hours (ext. infusion) The patient is currently on day # 4 of IV therapy. Objective: Height (Feet): 5 Height (Inches): 6.00 Weight (Kilograms): 133.000 Levels: Item Value Date Time Vancomycin Level Trough 12.4 mcg/ml 07/20/16 1331 Lab Results (24hrs): Laboratory Tests Test 07/20/16 05:33 BUN/Creatinine Ratio 11.2 Blood Urea Nitrogen 16 mg/dl Creatinine 1.40 mg/dl White Blood Count 10.32 K/uL Red Blood Count 4.10 M/uL Hemoglobin 12.3 g/dL Hematocrit 35.5 % Mean Corpuscular Volume 86.6 fL Mean Corpuscular Hemoglobin 30.0 pg Mean Corpuscular Hemoglobin Concent 34.6 g/dl Platelet Count 159 K/uL Mean Platelet Volume 11.0 fL Neutrophils (%) (Auto) 76.1 % Lymphocytes (%) (Auto) 15.5 % Monocytes (%) (Auto) 6.3 % Eosinophils (%) (Auto) 1.1 % Basophils (%) (Auto) 0.3 % Neutrophils # (Auto) 7.86 K/uL Lymphocytes # (Auto) 1.60 K/uL Monocytes # (Auto) 0.65 K/uL Eosinophils # (Auto) 0.11 K/uL Basophils # (Auto) 0.03 K/uL Micro Results: Item Value Date Time Blood Culture - Preliminary Resulted 07/17/16 1400 Blood NO GROWTH TO DATE. Blood Culture - Preliminary Resulted 07/17/16 1420 Blood NO GROWTH TO DATE. C.difficile Toxin B Gene (PCR) - Final Complete 07/20/16 0835 Stool No C. difficile toxin B gene detected Assessment & Plan: Assessment 61 year old male admitted with sepsis secondary to RLE cellulitis (patient was tachycardic and febrile with leukocytosis at the time of admission). 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 Afebrile since 3/20 am. WBC count improved. Plan Vancomycin + Zosyn for treatment of RLE cellulitis Vancomycin * Trough level of 12.4 mcg/mL is near therapeutic. * Slight decrease in trough (13.1 mcg/mL on 07/19) likely due to improvement in Scr, although I am surprised this patient has not starting to accumulate drug in the setting of obesity). * Goal trough level estimate: between 15 - 20 mcg/mL. * Increase dose to 2100 mg (16 mg/kg) IV every 12 hours. * Trough level has been ordered for: . Zosyn * Continue 4.5 g IV every 8 hours for CrCl greater than 20 mL/min. Pharmacy will continue to follow and will adjust dose/frequency as necessary. Thank you
[2016-07-20] MEDS: ACETAMINOPHEN 325 MG TAB PO PRN (16:00)
[2016-07-20] MEDS: GABAPENTIN 600MG Q8H DOSE PO SCH (17:16)
[2016-07-20] MEDS: CITALOPRAM 40 MG TAB PO SCH (22:13)
[2016-07-20] MEDS: ATORVASTATIN 40 MG TAB PO SCH (22:13)
--- NOTE | 2016-07-20 23:16 | Progress Note ---
Medicine Progress Note Date & Time of Visit: Jul 20, 2016 at 1400. 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 Redness and pain improving as well as ROM. Started on gabapentin protocol for alcohol withdrawal-- states patient drinks cases of beer at home and on the road Afebrile overnight Denies CP or SOB. Blister popped with serous drainage. Objective Last 8 Hrs Date Time Temp Pulse Resp B/P Pulse Ox O2 Delivery O2 Flow Rate FiO2 07/20/16 21:17 36.9 62 20 113/73 95 Room Air 07/20/16 16:00 94 Room Air 07/20/16 15:55 37.6 53 18 101/58 94 Room Air Physical Exam: GEN: WNWD, in no acute distress, alert and appropriate HEENT: NC/AT, normal sclerae CARDIO: reg rate, S1/2 heard without m/g/r LUNGS: CTA bilaterally, no crackles, rales or wheezes, good diaphragmatic excursion ABD: soft, non-tender, non-distended, no rebound or guarding, +BS EXTREMITY: RP and DP palpable 2+ bilat, no LE swelling or edema, extremities are warm and well-perfused R THIGH: area of significant redness that encompasses his entire anteriomedial thigh-does not cross inguinal line and doesn't extend posteriorly on the thigh; weak redness extending beyond the knee joint but 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 Blistering has opened on upper part of thigh over hard indurated area or redness. NEURO: CN 2-12 grossly intact, sensation intact throughout MUSC: 5/5 strength throughout, no focal deficits SKIN: warm and dry and wound as above. Laboratory Results: 07/20/16 05:33 Red Blood Count 4.10, Mean Corpuscular Volume 86.6, Mean Corpuscular Hemoglobin 30.0, Mean Corpuscular Hemoglobin Concent 34.6, Mean Platelet Volume 11.0, Neutrophils (%) (Auto) 76.1, Lymphocytes (%) (Auto) 15.5, Monocytes (%) (Auto) 6.3, Eosinophils (%) (Auto) 1.1, Basophils (%) (Auto) 0.3, Neutrophils # (Auto) 7.86, Lymphocytes # (Auto) 1.60, Monocytes # (Auto) 0.65, Eosinophils # (Auto) 0.11, Basophils # (Auto) 0.03 07/20/16 05:33 Test 07/17/16 14:00 07/17/16 14:29 07/19/16 05:15 07/20/16 05:33 Prothrombin Time 11.8 SECONDS (9.0-12.0) Prothromb Time International Ratio 1.1 (0.9-1.1) Magnesium Level 1.8 mg/dl (1.8-2.4) Total Bilirubin 1.0 mg/dl (0.2-1) Direct Bilirubin 0.2 mg/dl (0-0.2) Aspartate Amino Transf (AST/SGOT) 20 U/L (15-37) Alanine Aminotransferase (ALT/SGPT) 29 U/L (12-78) Alkaline Phosphatase 60 U/L (45-117) Total Creatine Kinase 315 U/L (39-308) Creatine Kinase MB 0.5 ng/ml (0.5-3.6) Creatine Kinase MB Ratio 0.2 (0-3.0) Troponin I < 0.015 ng/ml (0-0.045) Total Protein 7.8 gm/dl (6.4-8.2) Albumin 3.7 gm/dl (3.4-5.0) Hepatitis C Antibody Screen NEG (NEG) Bedside Lactic Acid Venous 1.40 mmol/L (0.90-1.70) Estimated Average Glucose 171 mg/dl Hemoglobin A1c 7.6 % (4.5-5.6) White Blood Count 10.32 K/uL (4.8-10.8) Red Blood Count 4.10 M/uL (4.7-6.1) Hemoglobin 12.3 g/dL (14.0-18.0) Hematocrit 35.5 % (42-52) Mean Corpuscular Volume 86.6 fL (80-100) Mean Corpuscular Hemoglobin 30.0 pg (25-34) Mean Corpuscular Hemoglobin Concent 34.6 g/dl (32-36) Platelet Count 159 K/uL (130-400) Mean Platelet Volume 11.0 fL (7.4-10.4) Neutrophils (%) (Auto) 76.1 % Lymphocytes (%) (Auto) 15.5 % Monocytes (%) (Auto) 6.3 % Eosinophils (%) (Auto) 1.1 % Basophils (%) (Auto) 0.3 % Neutrophils # (Auto) 7.86 K/uL (1.4-6.5) Lymphocytes # (Auto) 1.60 K/uL (1.2-3.4) Monocytes # (Auto) 0.65 K/uL (0.11-0.59) Eosinophils # (Auto) 0.11 K/uL (0-0.5) Basophils # (Auto) 0.03 K/uL (0-0.2) RDW Standard Deviation 44.4 fL (36.4-46.3) RDW Coefficient of Variation 13.9 % (11.5-14.5) Immature Granulocyte % (Auto) 0.7 % Immature Granulocyte # (Auto) 0.07 K/uL (0.00-0.02) Anion Gap 7.0 mmol/L (3-11) Est Creatinine Clear Calc Drug Dose 71.7 ml/min Estimated GFR () 62.4 Estimated GFR (Non- 53.8 BUN/Creatinine Ratio 11.2 (10-20) Calcium Level 8.0 mg/dl (8.5-10.1) Test 07/20/16 13:31 07/20/16 22:06 Vancomycin Level Trough 12.4 mcg/ml (SEE COMMENT) Bedside Glucose 149 mg/dl (70-99) Date/Time Source Procedure Growth Status 07/17/16 14:20 Blood Blood Culture - Preliminary NO GROWTH TO DATE. Resulted 07/20/16 08:35 Stool C.difficile Toxin B Gene (PCR) - Final No C. difficile toxin B gene detected Complete Last 24 Hours Test 07/20/16 05:33 07/20/16 07:29 07/20/16 11:37 07/20/16 13:31 White Blood Count 10.32 K/uL Red Blood Count 4.10 M/uL Hemoglobin 12.3 g/dL Hematocrit 35.5 % Mean Corpuscular Volume 86.6 fL Mean Corpuscular Hemoglobin 30.0 pg Mean Corpuscular Hemoglobin Concent 34.6 g/dl Platelet Count 159 K/uL Mean Platelet Volume 11.0 fL Neutrophils (%) (Auto) 76.1 % Lymphocytes (%) (Auto) 15.5 % Monocytes (%) (Auto) 6.3 % Eosinophils (%) (Auto) 1.1 % Basophils (%) (Auto) 0.3 % Neutrophils # (Auto) 7.86 K/uL Lymphocytes # (Auto) 1.60 K/uL Monocytes # (Auto) 0.65 K/uL Eosinophils # (Auto) 0.11 K/uL Basophils # (Auto) 0.03 K/uL RDW Standard Deviation 44.4 fL RDW Coefficient of Variation 13.9 % Immature Granulocyte % (Auto) 0.7 % Immature Granulocyte # (Auto) 0.07 K/uL Sodium Level 137 mmol/L Potassium Level 3.7 mmol/L Chloride Level 100 mmol/L Carbon Dioxide Level 30 mmol/L Anion Gap 7.0 mmol/L Blood Urea Nitrogen 16 mg/dl Creatinine 1.40 mg/dl Est Creatinine Clear Calc Drug Dose 71.7 ml/min Estimated GFR () 62.4 Estimated GFR (Non- 53.8 BUN/Creatinine Ratio 11.2 Random Glucose 143 mg/dl Calcium Level 8.0 mg/dl Bedside Glucose 144 mg/dl 187 mg/dl Vancomycin Level Trough 12.4 mcg/ml Test 07/20/16 16:09 07/20/16 22:06 Bedside Glucose 158 mg/dl 149 mg/dl Date/Time Source Procedure Growth Status 07/20/16 08:35 Stool C.difficile Toxin B Gene (PCR) - Final No C. 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 1. RLE cellulitis-resuscitated from a sepsis standpoint. Cellulitis appears to be healing and feels improved to the patient. Cont IV Vanc and Zosyn at this time. BCx are negative and he is hemodynamically stable. It appears this wound originated from chafing (as evidenced by the blistering) that was repetitive while driving his truck to and from [place] recently. 2. DMII-cont ISS coverage and appreciate inpatient glycemic pharmacist management 3. SUMEET-creat up on admission with normal baseline. Pt is tolerating PO, drinking water and has had IVF since admission. Stopped IVF last night. Some improvement to 1.4 this morning. 4. HTN-Controlled, holding lisinopril in setting of SUMEET 5. Depression-stable on Celexa 6. Hyperlipidemia-cont Lipitor per home regimen 7. ETOH abuse-extensive per . Placed him on ETOH withdrawal protocol with gabapentin overnight. No apparent withdrawal. Last drink was roughly 2-3 days ago. FULL CODE DVT PROPHYLAXIS Heparin SQ Dispo-cont IV abx while continuing to fever and until redness starts to clear. May be a couple more days as an inpatient. Expect him to go home without home support needed. [facility] Continued [facility] stay due to: fever, multiple IV medications needed Discharge planning: home Current Inpatient Medications: Current Inpatient Medications Medications (Trade) Dose Ordered Sig/Georgi Route Start Time Stop Time Status Last Admin Dose Admin Acetaminophen (Tylenol Tab) 650 mg Q4H PRN PO 07/17/16 16:00 08/16/16 15:59 07/20/16 16:00 650 MG Ondansetron HCl (Zofran Inj) 4 mg Q6H PRN IV 07/17/16 16:00 08/16/16 15:59 Piperacillin Sod/ Tazobactam Sod (Consult) 1 ea UD PRN N/A 07/17/16 16:45 08/16/16 16:44 Vancomycin HCl (Consult) 1 ea UD PRN N/A 07/17/16 16:45 08/16/16 16:44 Insulin Aspart (novoLOG ASPART) SLIDING SCALE If C... ACHS SC 07/17/16 21:00 08/16/16 20:59 07/20/16 17:18 4 UNITS Glucose (Glucose 40% Gel) 15-30 GRAMS 15 GRAMS... UD PRN PO 07/17/16 16:15 08/16/16 16:14 Glucose (Glucose Chew Tab) 4-8 Tablets 4 Tabl... UD PRN PO 07/17/16 16:15 08/16/16 16:14 Dextrose (Dextrose 50% 50ML Syringe) 25-50ML OF 50% DW IV FOR... UD PRN IV 07/17/16 16:15 08/16/16 16:14 Glucagon (Glucagon Inj) 1 mg UD PRN SQ 07/17/16 16:15 08/16/16 16:14 Atorvastatin Calcium (Lipitor Tab) 40 mg HS PO 07/17/16 21:00 08/16/16 20:59 07/20/16 22:13 40 MG Benzonatate (Tessalon Perles Cap) 100 mg TID PRN PO 07/17/16 16:15 08/16/16 16:14 07/19/16 20:41 100 MG Citalopram Hydrobromide (celeXA TAB) 40 mg HS PO 07/17/16 21:00 08/16/16 20:59 07/20/16 22:13 40 MG Lisinopril (Zestril Tab) 20 mg DAILY PO 07/18/16 09:00 08/17/16 08:59 Future Hold 07/18/16 08:21 20 MG Pantoprazole Sodium (Protonix Tab) 40 mg QAM PO 07/18/16 09:00 08/17/16 08:59 07/20/16 08:16 40 MG Heparin Sodium (Porcine) 5000 unit 5,000 unit Q8 SQ 07/17/16 22:00 08/16/16 21:59 07/20/16 22:17 5,000 UNIT Piperacillin Sod/ Tazobactam Sod/ Dextrose (Zosyn Iv/D5 100ml) 120 ml @ 30 mls/hr Q8H IV 07/17/16 22:00 07/27/16 13:59 07/20/16 22:11 30 MLS/HR Morphine Sulfate (MoRPHine SULFATE INJ) 4 mg Q4 PRN IV 07/17/16 18:15 07/31/16 18:14 Acetaminophen/ Hydrocodone Bitart ([place] 10/325 Tab) 1 tab Q6 PRN PO 07/17/16 18:15 07/31/16 18:14 07/19/16 12:30 1 TAB Hydralazine HCl (HydrALAZINE INJ) 5 mg Q6 PRN IV. 07/18/16 09:30 08/17/16 09:29 Lorazepam (Ativan Tab) 1 mg ONE PRN PO 07/19/16 20:15 08/02/16 20:14 Lorazepam (Ativan Inj) 1 mg Q1H PRN IV 07/19/16 20:15 08/18/16 20:14 Thiamine HCl (Vitamin B-1 Tab) 100 mg QAM PO 07/20/16 09:00 08/19/16 08:59 07/20/16 08:15 100 MG Folic Acid (Folvite Tab) 1 mg QAM PO 07/20/16 09:00 08/19/16 08:59 07/20/16 08:15 1 MG Multivitamins (Multivitamin Tab) 1 tab QAM PO 07/20/16 09:00 08/19/16 08:59 07/20/16 08:15 1 TAB Gabapentin (Neurontin Tab) 600 mg Q8H PO 07/20/16 18:00 07/21/16 10:01 07/20/16 17:16 600 MG Gabapentin (Neurontin Tab) 600 mg Q12H PO 07/21/16 22:00 07/22/16 10:01 Gabapentin 600 mg 600 mg Q24H PO 07/23/16 10:00 07/23/16 10:01 Vancomycin HCl/ Sodium Chloride (Vancomycin Inj/ Nss 500ml) 542 ml @ 200 mls/hr Q12H IV 07/21/16 02:00 07/28/16 01:59
[2016-07-21] MEDS: VANCOMYCIN INJ 2,100 MG in SODIUM CHLORIDE 0.9% 500ML 500 ML IV SCH ×2 (01:44→12:47)
[2016-07-21] MEDS: GABAPENTIN 600MG Q8H DOSE PO SCH ×2 (01:44→10:02)
[2016-07-21] MEDS: BENZONATATE 100MG CAP PO PRN (01:44)
[2016-07-21] MEDS ORDERED: COUGH DROP (SUGAR FREE) LOZ 24 LOZ/1 BOX ONE (01:45)
[2016-07-21] MEDS: HEPARIN SOD 5000 UNIT/0.5 ML CARP SQ SCH ×3 (06:27→21:51)
[2016-07-21] MEDS: PIPERACILL/TAZOBAC IV 4.5 GM in DEXTROSE 5% 100ML IV SCH ×3 (06:42→21:57)
[2016-07-21 07:35] VITALS: BP 133/80; PULSE 68; TEMP 37; O2SAT 91
[2016-07-21] MEDS: THIAMINE HCL 100 MG TAB PO SCH (08:48)
[2016-07-21] MEDS: PANTOprazole SOD 40 MG TAB PO SCH (08:48)
[2016-07-21] MEDS: MULTIVITAMIN TAB PO SCH (08:49)
[2016-07-21] MEDS: INSULIN ASPART 100 UNITS/ML 3 ML PEN SC SCH ×4 (08:52→21:50)
--- NOTE | 2016-07-21 11:56 | Progress Note ---
Medicine Progress Note Date & Time of Visit: Jul 21, 2016 at 11:50. 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 -feels improved -pain still present but is able to ambulate -tolerating PO -febrile last night -area of redness is significantly improved Objective Last 8 Hrs Date Time Temp Pulse Resp B/P Pulse Ox O2 Delivery O2 Flow Rate FiO2 07/21/16 09:00 Room Air 07/21/16 07:35 37.0 68 16 133/80 91 Room Air Physical Exam: GEN: WNWD, in no acute distress, alert and appropriate HEENT: NC/AT, normal sclerae CARDIO: reg rate, S1/2 heard without m/g/r LUNGS: CTA bilaterally, no crackles, rales or wheezes, good diaphragmatic excursion ABD: protuberant, soft, non-tender, non-distended, no rebound or guarding, +BS EXTREMITY: RP and DP palpable 2+ bilat, no LE swelling or edema, extremities are warm and well-perfused R THIGH: area of significant redness that encompasses his entire anteromedial thigh-does not cross inguinal line and has decreased behind original line drawn in ER, draining blistering. NEURO: CN 2-12 grossly intact, sensation intact throughout MUSC: 5/5 strength throughout, no focal deficits SKIN: warm and dry and wound as above. 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 1. RLE cellulitis- Cellulitis continues to improve. Due to area of involvement cont IV Vanc and Zosyn at this time. BCx are negative and he remains hemodynamically stable. It appears this wound originated from chafing ( as evidenced by the blistering) that was repetitive while driving his truck to and from [place] recently. 2. DMII-cont ISS coverage and appreciate inpatient glycemic pharmacist management 3. SUMEET-creat up on admission with normal baseline. Pt is tolerating PO, drinking water and has had IVF since admission. Monitor PRP in am. 4. HTN-Controlled, holding lisinopril in setting of SUMEET 5. Depression-stable on Celexa 6. Hyperlipidemia-cont Lipitor per home regimen 7. ETOH abuse-extensive per . Placed him on ETOH withdrawal protocol with gabapentin. No apparent withdrawal at this time. FULL CODE DVT PROPHYLAXIS Heparin SQ Dispo-cont IV abx while continuing to fever overnight and until redness clears more. May be a couple more days as an inpatient. Expect him to go home without home support needed. [facility] Contin[facility] stay due to: fever, multiple IV medications needed Discharge planning: home Current Inpatient Medications: Current Inpatient Medications Medications (Trade) Dose Ordered Sig/Georgi Route Start Time Stop Time Status Last Admin Dose Admin Acetaminophen (Tylenol Tab) 650 mg Q4H PRN PO 07/17/16 16:00 08/16/16 15:59 07/20/16 16:00 650 MG Ondansetron HCl (Zofran Inj) 4 mg Q6H PRN IV 07/17/16 16:00 08/16/16 15:59 Piperacillin Sod/ Tazobactam Sod (Consult) 1 ea UD PRN N/A 07/17/16 16:45 08/16/16 16:44 Vancomycin HCl (Consult) 1 ea UD PRN N/A 07/17/16 16:45 08/16/16 16:44 Insulin Aspart (novoLOG ASPART) SLIDING SCALE If C... ACHS SC 07/17/16 21:00 08/16/16 20:59 07/21/16 08:52 6 UNITS Glucose (Glucose 40% Gel) 15-30 GRAMS 15 GRAMS... UD PRN PO 07/17/16 16:15 08/16/16 16:14 Glucose (Glucose Chew Tab) 4-8 Tablets 4 Tabl... UD PRN PO 07/17/16 16:15 08/16/16 16:14 Dextrose (Dextrose 50% 50ML Syringe) 25-50ML OF 50% DW IV FOR... UD PRN IV 07/17/16 16:15 08/16/16 16:14 Glucagon (Glucagon Inj) 1 mg UD PRN SQ 07/17/16 16:15 08/16/16 16:14 Atorvastatin Calcium (Lipitor Tab) 40 mg HS PO 07/17/16 21:00 08/16/16 20:59 07/20/16 22:13 40 MG Benzonatate (Tessalon Perles Cap) 100 mg TID PRN PO 07/17/16 16:15 08/16/16 16:14 07/21/16 01:44 100 MG Citalopram Hydrobromide (celeXA TAB) 40 mg HS PO 07/17/16 21:00 08/16/16 20:59 07/20/16 22:13 40 MG Lisinopril (Zestril Tab) 20 mg DAILY PO 07/18/16 09:00 08/17/16 08:59 Future Hold 07/18/16 08:21 20 MG Pantoprazole Sodium (Protonix Tab) 40 mg QAM PO 07/18/16 09:00 08/17/16 08:59 07/21/16 08:48 40 MG Heparin Sodium (Porcine) 5000 unit 5,000 unit Q8 SQ 07/17/16 22:00 08/16/16 21:59 07/21/16 06:27 5,000 UNIT Piperacillin Sod/ Tazobactam Sod/ Dextrose (Zosyn Iv/D5 100ml) 120 ml @ 30 mls/hr Q8H IV 07/17/16 22:00 07/27/16 13:59 07/21/16 06:42 30 MLS/HR Morphine Sulfate (MoRPHine SULFATE INJ) 4 mg Q4 PRN IV 07/17/16 18:15 07/31/16 18:14 Acetaminophen/ Hydrocodone Bitart ([place] 10/325 Tab) 1 tab Q6 PRN PO 07/17/16 18:15 07/31/16 18:14 07/19/16 12:30 1 TAB Hydralazine HCl (HydrALAZINE INJ) 5 mg Q6 PRN IV. 07/18/16 09:30 08/17/16 09:29 Lorazepam (Ativan Tab) 1 mg ONE PRN PO 07/19/16 20:15 08/02/16 20:14 Lorazepam (Ativan Inj) 1 mg Q1H PRN IV 07/19/16 20:15 08/18/16 20:14 Thiamine HCl (Vitamin B-1 Tab) 100 mg QAM PO 07/20/16 09:00 08/19/16 08:59 07/21/16 08:48 100 MG Folic Acid (Folvite Tab) 1 mg QAM PO 07/20/16 09:00 08/19/16 08:59 07/21/16 08:49 1 MG Multivitamins (Multivitamin Tab) 1 tab QAM PO 07/20/16 09:00 08/19/16 08:59 07/21/16 08:49 1 TAB Gabapentin (Neurontin Tab) 600 mg Q12H PO 07/21/16 22:00 07/22/16 10:01 Gabapentin 600 mg 600 mg Q24H PO 07/23/16 10:00 07/23/16 10:01 Vancomycin HCl/ Sodium Chloride (Vancomycin Inj/ Nss 500ml) 542 ml @ 200 mls/hr Q12H IV 07/21/16 02:00 07/28/16 01:59 07/21/16 01:44 200 MLS/HR
[2016-07-21 15:04] VITALS: BP 116/73; PULSE 69; TEMP 37.2; O2SAT 94
[2016-07-21] MEDS: ATORVASTATIN 40 MG TAB PO SCH (21:48)
[2016-07-21] MEDS: CITALOPRAM 40 MG TAB PO SCH (21:48)
[2016-07-21] MEDS: GABAPENTIN 600MG Q12H DOSE PO SCH (21:55)
[2016-07-21 23:11] VITALS: BP 120/79; PULSE 71; TEMP 36.6; O2SAT 95
[2016-07-22] MEDS: VANCOMYCIN INJ 2,100 MG in SODIUM CHLORIDE 0.9% 500ML 500 ML IV SCH (02:09)
[2016-07-22] MEDS: PIPERACILL/TAZOBAC IV 4.5 GM in DEXTROSE 5% 100ML IV SCH (05:54)
[2016-07-22] MEDS: HEPARIN SOD 5000 UNIT/0.5 ML CARP SQ SCH ×3 (06:00→22:00)
[2016-07-22] MEDS: INSULIN ASPART 100 UNITS/ML 3 ML PEN SC SCH ×4 (06:30→21:00)
[2016-07-22 06:37] LABS: HEMATOCRIT 34.4 % (42-52); MEAN CELL VOLUME 86.4 fL (80-100); MEAN CORPUSCULAR HEMOGLOBIN 30.2 pg (25-34); MEAN CORPUSCULAR HGB CONC 34.9 g/dl (32-36); MEAN PLATELET VOLUME 10.5 fL (7.4-10.4); PLATELET COUNT 187 K/uL (130-400); RED BLOOD COUNT 3.98 M/uL (4.7-6.1); WHITE BLOOD COUNT 8.36 K/uL (4.8-10.8)
[2016-07-22 07:14] LABS: BUN/CREATININE RATIO 9.9 (10-20); CALCIUM 8.3 mg/dl (8.5-10.1); CREATININE 1.1 mg/dl (0.60-1.40); POTASSIUM 3.3 mmol/L (3.5-5.1)
[2016-07-22 07:48] VITALS: BP 126/77; PULSE 65; TEMP 36.9; O2SAT 95
[2016-07-22] MEDS: PANTOprazole SOD 40 MG TAB PO SCH (09:58)
[2016-07-22] MEDS: GABAPENTIN 600MG Q12H DOSE PO SCH (09:59)
[2016-07-22] MEDS: MULTIVITAMIN TAB PO SCH (09:59)
[2016-07-22] MEDS: THIAMINE HCL 100 MG TAB PO SCH (10:00)
[2016-07-22] MEDS: POTASSIUM CHLORIDE 20 MEQ TABCR PO SCH ×2 (10:18→13:00)
--- NOTE | 2016-07-22 11:59 | Pharmacy Progress Note ---
Pharmacy Antibiotic Prog Note Date of Service: Jul 22, 2016. Subjective: The patient is currently on day # 6 of vancomycin and Zosyn IV therapy for R thigh cellulitis. Objective: Height (Feet): 5 Height (Inches): 6.00 Weight (Kilograms): 133.000 (BMI = 47) Levels: Item Value Date Time Vancomycin Level Trough 13.1 mcg/ml 07/19/16 0130 Vancomycin Level Trough 12.4 mcg/ml 07/20/16 1331 Random Vancomycin Level 19.6 mcg/ml 07/22/16 1045 Lab Results (24hrs): Laboratory Tests Test 07/22/16 06:19 BUN/Creatinine Ratio 9.9 Blood Urea Nitrogen 11 mg/dl Creatinine 1.10 mg/dl White Blood Count 8.36 K/uL Micro Results: Item Value Date Time C.difficile Toxin B Gene (PCR) - Final Complete 07/20/16 0835 Stool No C. difficile toxin B gene detected Blood Culture - Preliminary Resulted 07/17/16 1420 Blood NO GROWTH TO DATE. Blood Culture - Preliminary Resulted 07/17/16 1400 Blood NO GROWTH TO DATE. Recent Pertinent Medications: Item Value Date Time Vancomycin HCl 542 ml @ 200 mls/hr 07/21/16 0200 2100 mg/Sodium Q12H/IV 07/22/16 0209 Chloride Piperacillin Sod/ 120 ml @ 30 mls/hr 07/17/16 2200 Tazobactam Sod Q8H/IV 07/22/16 0554 4.5 gm/Dextrose Assessment & Plan: ASSESSMENT: * The patient has remained on vancomycin and Zosyn IV for cellulitis * Per the provider's notes yesterday, plan is to continue IV abx until the redness clears more * His SCr is improved today so I was concerned that the trough level may be a little low and ordered a random level a few hours early * Random level drawn ~3 hrs prior to when trough would be drawn is slightly supratherapeutic for goal trough, indicating that the trough level should be acceptable PLAN: * Continue vancomycin 2100 mg IV q12h * Recheck trough level on 07/25 * Goal trough ~15 for cellulitis indication Pharmacy will continue to follow and will adjust dose/frequency as necessary. Thank you
[2016-07-22] MEDS ORDERED: DOXYCYCLINE HYCLATE 100 MG CAP PO ONE (13:00)
[2016-07-22] MEDS ORDERED: VANCOMYCIN TROUGH SCH (13:30)
[2016-07-22 15:56] VITALS: BP 107/66; PULSE 63; TEMP 36.6; O2SAT 95
[2016-07-22] MEDS: BENZONATATE 100MG CAP PO PRN ×2 (18:00→21:07)
[2016-07-22 20:00] VITALS: O2SAT 96
[2016-07-22] MEDS: DOXYCYCLINE HYCLATE 100 MG CAP PO SCH (21:08)
[2016-07-22] MEDS: CITALOPRAM 40 MG TAB PO SCH (21:08)
[2016-07-22] MEDS: ATORVASTATIN 40 MG TAB PO SCH (21:08)
--- NOTE | 2016-07-22 22:18 | Progress Note ---
Medicine Progress Note Date & Time of Visit: Jul 22, 2016 at 12:26. 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 -afebrile overnight -feels improved, blisters still present and this is painful -tolerating PO -is otherwise asymptomatic Objective Last 8 Hrs Date Time Temp Pulse Resp B/P Pulse Ox O2 Delivery O2 Flow Rate FiO2 07/22/16 08:00 Room Air 07/22/16 07:48 36.9 65 18 126/77 95 Room Air Physical Exam: GEN: WNWD, in no acute distress, alert and appropriate HEENT: NC/AT, normal sclerae CARDIO: reg rate, S1/2 heard without m/g/r LUNGS: CTA bilaterally, no crackles, rales or wheezes, good diaphragmatic excursion ABD: protuberant, soft, non-tender, non-distended, no rebound or guarding, +BS EXTREMITY: RP and DP palpable 2+ bilat, no LE swelling or edema, extremities are warm and well-perfused R THIGH: area of significant redness that encompasses his entire anteromedial thigh-does not cross inguinal line and has decreased behind original line drawn in ER, draining blistering. There is more light pink streaking down his leg to the lower lateral leg- appears to be healing process-- new line placed around this area to look at tomorrow. NEURO: CN 2-12 grossly intact, sensation intact throughout MUSC: 5/5 strength throughout, no focal deficits SKIN: warm and dry and wound as above. Laboratory Results: 07/22/16 06:19 07/22/16 06:19 Test 07/17/16 14:00 07/17/16 14:29 07/19/16 05:15 07/20/16 05:33 Prothrombin Time 11.8 SECONDS (9.0-12.0) Prothromb Time International Ratio 1.1 (0.9-1.1) Magnesium Level 1.8 mg/dl (1.8-2.4) Total Bilirubin 1.0 mg/dl (0.2-1) Direct Bilirubin 0.2 mg/dl (0-0.2) Aspartate Amino Transf (AST/SGOT) 20 U/L (15-37) Alanine Aminotransferase (ALT/SGPT) 29 U/L (12-78) Alkaline Phosphatase 60 U/L (45-117) Total Creatine Kinase 315 U/L (39-308) Creatine Kinase MB 0.5 ng/ml (0.5-3.6) Creatine Kinase MB Ratio 0.2 (0-3.0) Troponin I < 0.015 ng/ml (0-0.045) Total Protein 7.8 gm/dl (6.4-8.2) Albumin 3.7 gm/dl (3.4-5.0) Hepatitis C Antibody Screen NEG (NEG) Bedside Lactic Acid Venous 1.40 mmol/L (0.90-1.70) Estimated Average Glucose 171 mg/dl Hemoglobin A1c 7.6 % (4.5-5.6) Immature Granulocyte % (Auto) 0.7 % White Blood Count 10.32 K/uL (4.8-10.8) Red Blood Count 4.10 M/uL (4.7-6.1) Hemoglobin 12.3 g/dL (14.0-18.0) Hematocrit 35.5 % (42-52) Mean Corpuscular Volume 86.6 fL (80-100) Mean Corpuscular Hemoglobin 30.0 pg (25-34) Mean Corpuscular Hemoglobin Concent 34.6 g/dl (32-36) Platelet Count 159 K/uL (130-400) Mean Platelet Volume 11.0 fL (7.4-10.4) Neutrophils (%) (Auto) 76.1 % Lymphocytes (%) (Auto) 15.5 % Monocytes (%) (Auto) 6.3 % Eosinophils (%) (Auto) 1.1 % Basophils (%) (Auto) 0.3 % Neutrophils # (Auto) 7.86 K/uL (1.4-6.5) Lymphocytes # (Auto) 1.60 K/uL (1.2-3.4) Monocytes # (Auto) 0.65 K/uL (0.11-0.59) Eosinophils # (Auto) 0.11 K/uL (0-0.5) Basophils # (Auto) 0.03 K/uL (0-0.2) Immature Granulocyte # (Auto) 0.07 K/uL (0.00-0.02) Test 07/20/16 13:31 07/22/16 06:19 07/22/16 10:45 07/22/16 20:51 Vancomycin Level Trough 12.4 mcg/ml (SEE COMMENT) Red Blood Count 3.98 M/uL (4.7-6.1) Mean Corpuscular Volume 86.4 fL (80-100) Mean Corpuscular Hemoglobin 30.2 pg (25-34) Mean Corpuscular Hemoglobin Concent 34.9 g/dl (32-36) RDW Standard Deviation 44.7 fL (36.4-46.3) RDW Coefficient of Variation 14.1 % (11.5-14.5) Mean Platelet Volume 10.5 fL (7.4-10.4) Anion Gap 8.0 mmol/L (3-11) Est Creatinine Clear Calc Drug Dose 91.2 ml/min Estimated GFR () 83.5 Estimated GFR (Non- 72.1 BUN/Creatinine Ratio 9.9 (10-20) Calcium Level 8.3 mg/dl (8.5-10.1) Random Vancomycin Level 19.6 mcg/ml Bedside Glucose 168 mg/dl (70-99) Date/Time Source Procedure Growth Status 07/17/16 14:20 Blood Blood Culture - Preliminary NO GROWTH TO DATE. Resulted 07/20/16 08:35 Stool C.difficile Toxin B Gene (PCR) - Final No C. difficile toxin B gene detected Complete Last 24 Hours Test 07/21/16 16:23 07/21/16 20:07 07/22/16 06:19 07/22/16 08:08 Bedside Glucose 140 mg/dl 193 mg/dl 127 mg/dl White Blood Count 8.36 K/uL Red Blood Count 3.98 M/uL Hemoglobin 12.0 g/dL Hematocrit 34.4 % Mean Corpuscular Volume 86.4 fL Mean Corpuscular Hemoglobin 30.2 pg Mean Corpuscular Hemoglobin Concent 34.9 g/dl RDW Standard Deviation 44.7 fL RDW Coefficient of Variation 14.1 % Platelet Count 187 K/uL Mean Platelet Volume 10.5 fL Sodium Level 140 mmol/L Potassium Level 3.3 mmol/L Chloride Level 103 mmol/L Carbon Dioxide Level 29 mmol/L Anion Gap 8.0 mmol/L Blood Urea Nitrogen 11 mg/dl Creatinine 1.10 mg/dl Est Creatinine Clear Calc Drug Dose 91.2 ml/min Estimated GFR () 83.5 Estimated GFR (Non- 72.1 BUN/Creatinine Ratio 9.9 Random Glucose 136 mg/dl Calcium Level 8.3 mg/dl Test 07/22/16 10:45 07/22/16 12:02 Random Vancomycin Level 19.6 mcg/ml Bedside Glucose 192 mg/dl Assessment & Plan 61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 1. RLE cellulitis- Cellulitis continues to improve. BCx are negative and he remains hemodynamically stable and afebrile overnight. It appears this wound originated from chafing (as evidenced by the blistering) that was repetitive while driving his truck to and from [place] recently. Will change to PO doxycycline at this time. If continues to improve would send him home tmrw or next day. 2. DMII-cont ISS coverage and appreciate inpatient glycemic pharmacist management--meeting inpatient goals 3. SUMEET-resolved. 4. HTN-Controlled, cont lisinopril 5. Depression-stable on Celexa 6. Hyperlipidemia-cont Lipitor per home regimen 7. ETOH abuse-extensive per . Placed him on ETOH withdrawal protocol with gabapentin. No apparent withdrawal at this time. FULL CODE DVT PROPHYLAXIS Heparin SQ Dispo-poss to home tomorrow. Cinthia Briceño DO [facility] Hospitalist Continued [facility] stay due to: fever, multiple IV medications needed Discharge planning: home Current Inpatient Medications: Current Inpatient Medications Medications (Trade) Dose Ordered Sig/Georgi Route Start Time Stop Time Status Last Admin Dose Admin Acetaminophen (Tylenol Tab) 650 mg Q4H PRN PO 07/17/16 16:00 08/16/16 15:59 07/20/16 16:00 650 MG Ondansetron HCl (Zofran Inj) 4 mg Q6H PRN IV 07/17/16 16:00 08/16/16 15:59 Piperacillin Sod/ Tazobactam Sod (Consult) 1 ea UD PRN N/A 07/17/16 16:45 08/16/16 16:44 Vancomycin HCl (Consult) 1 ea UD PRN N/A 07/17/16 16:45 08/16/16 16:44 Insulin Aspart (novoLOG ASPART) SLIDING SCALE If C... ACHS SC 07/17/16 21:00 08/16/16 20:59 07/21/16 21:50 2 UNITS Glucose (Glucose 40% Gel) 15-30 GRAMS 15 GRAMS... UD PRN PO 07/17/16 16:15 08/16/16 16:14 Glucose (Glucose Chew Tab) 4-8 Tablets 4 Tabl... UD PRN PO 07/17/16 16:15 08/16/16 16:14 Dextrose (Dextrose 50% 50ML Syringe) 25-50ML OF 50% DW IV FOR... UD PRN IV 07/17/16 16:15 08/16/16 16:14 Glucagon (Glucagon Inj) 1 mg UD PRN SQ 07/17/16 16:15 08/16/16 16:14 Atorvastatin Calcium (Lipitor Tab) 40 mg HS PO 07/17/16 21:00 08/16/16 20:59 07/21/16 21:48 40 MG Benzonatate (Tessalon Perles Cap) 100 mg TID PRN PO 07/17/16 16:15 08/16/16 16:14 07/21/16 01:44 100 MG Citalopram Hydrobromide (celeXA TAB) 40 mg HS PO 07/17/16 21:00 08/16/16 20:59 07/21/16 21:48 40 MG Lisinopril (Zestril Tab) 20 mg DAILY PO 07/18/16 09:00 08/17/16 08:59 Future hold 07/18/16 08:21 20 MG Pantoprazole Sodium (Protonix Tab) 40 mg QAM PO 07/18/16 09:00 08/17/16 08:59 07/22/16 09:58 40 MG Heparin Sodium (Porcine) 5000 unit 5,000 unit Q8 SQ 07/17/16 22:00 08/16/16 21:59 07/22/16 06:00 5,000 UNIT Piperacillin Sod/ Tazobactam Sod/ Dextrose (Zosyn Iv/D5 100ml) 120 ml @ 30 mls/hr Q8H IV 07/17/16 22:00 07/27/16 13:59 07/22/16 05:54 30 MLS/HR Morphine Sulfate (MoRPHine SULFATE INJ) 4 mg Q4 PRN IV 07/17/16 18:15 07/31/16 18:14 Acetaminophen/ Hydrocodone Bitart ([place] 10/325 Tab) 1 tab Q6 PRN PO 07/17/16 18:15 07/31/16 18:14 07/19/16 12:30 1 TAB Hydralazine HCl (HydrALAZINE INJ) 5 mg Q6 PRN IV. 07/18/16 09:30 08/17/16 09:29 Lorazepam (Ativan Tab) 1 mg ONE PRN PO 07/19/16 20:15 08/02/16 20:14 Lorazepam (Ativan Inj) 1 mg Q1H PRN IV 07/19/16 20:15 08/18/16 20:14 Thiamine HCl (Vitamin B-1 Tab) 100 mg QAM PO 07/20/16 09:00 08/19/16 08:59 07/22/16 10:00 100 MG Folic Acid (Folvite Tab) 1 mg QAM PO 07/20/16 09:00 08/19/16 08:59 07/22/16 09:59 1 MG Multivitamins (Multivitamin Tab) 1 tab QAM PO 07/20/16 09:00 08/19/16 08:59 07/22/16 09:59 1 TAB Gabapentin 600 mg 600 mg Q24H PO 07/23/16 10:00 07/23/16 10:01 Vancomycin HCl/ Sodium Chloride (Vancomycin Inj/ Nss 500ml) 542 ml @ 200 mls/hr Q12H IV 07/21/16 02:00 07/28/16 01:59 07/22/16 02:09 200 MLS/HR Potassium Chloride (Klor-Con Tab) 40 meq Q4H PO 07/22/16 10:00 07/22/16 14:01 07/22/16 10:18 40 MEQ
[2016-07-22 23:19] VITALS: BP 120/78; PULSE 62; TEMP 37.3; O2SAT 97
[2016-07-23] VITALS: O2SAT 96
[2016-07-23] MEDS: HEPARIN SOD 5000 UNIT/0.5 ML CARP SQ SCH ×2 (05:48→14:35)
[2016-07-23 06:00] LABS: HEMATOCRIT 36.7 % (42-52); MEAN CELL VOLUME 86.6 fL (80-100); MEAN CORPUSCULAR HEMOGLOBIN 30.2 pg (25-34); MEAN CORPUSCULAR HGB CONC 34.9 g/dl (32-36); MEAN PLATELET VOLUME 10.5 fL (7.4-10.4); PLATELET COUNT 206 K/uL (130-400); RED BLOOD COUNT 4.24 M/uL (4.7-6.1); WHITE BLOOD COUNT 7.63 K/uL (4.8-10.8)
[2016-07-23] MEDS: INSULIN ASPART 100 UNITS/ML 3 ML PEN SC SCH ×2 (06:30→12:32)
[2016-07-23 06:34] LABS: BUN/CREATININE RATIO 11.8 (10-20); CALCIUM 8.5 mg/dl (8.5-10.1); CREATININE 1.1 mg/dl (0.60-1.40); MAGNESIUM 1.9 mg/dl (1.8-2.4); POTASSIUM 3.7 mmol/L (3.5-5.1)
[2016-07-23 07:31] VITALS: BP 118/75; PULSE 86; TEMP 36.7; O2SAT 98
[2016-07-23] MEDS: LISINOPRIL 20 MG TAB PO SCH (08:00)
[2016-07-23] MEDS: DOXYCYCLINE HYCLATE 100 MG CAP PO SCH (08:41)
[2016-07-23] MEDS: PANTOprazole SOD 40 MG TAB PO SCH (08:42)
[2016-07-23] MEDS: THIAMINE HCL 100 MG TAB PO SCH (08:43)
[2016-07-23] MEDS: MULTIVITAMIN TAB PO SCH (08:43)
[2016-07-23] MEDS ORDERED: GABAPENTIN 600MG X1 DOSE PO SCH (10:00)
[2016-07-23] MEDS ORDERED: DXY100 PO (13:31)
--- NOTE | 2016-07-23 13:49 | Discharge Instructions ---
Discharge Instructions Date of Service Jul 23, 2016. Admission Reason for Admission: Cellulitis, Sepsis Discharge Discharge Diagnosis / Problem: Cellulitis of L upper thigh Discharge Goals Goal(s): Prevent Disease Progression Activity Recommendations Activity Limitations: per Instructions/Follow-up section . Instructions / Follow-Up Instructions / Follow-Up Please complete entire course of doxycycline (antibiotic) as prescribed. For your wound, cleanse daily with water as tolerated and keep Aquacel (blue gauze) in place and change every other day covered with regular dry gauze as instructed by the wound care nurse. Wear loose-fitting clothes until completely healed. You have an appointment with Dr. Jessie Nelson in the [place] office on at 11:10am. Please bring all paperwork from this hospitalization with you. It was a pleasure taking care of you! Call if you have any questions or problems. You can reach a [facility] hospitalist on duty at [facility] 24 hours a day by calling [phone]. Take care of yourself. Cinthia Briceño, [facility] Hospitalist Current Hospital Diet Patient's current hospital diet: AHA Diet (Heart Healthy), Diabetes Type 2 Diet Discharge Diet Recommended Diet: AHA Diet (Heart Healthy), Diabetes Type 2 Diet Pending Studies Studies pending at discharge: yes List of pending studies: Superficial wound culture Laboratory Results Hemoglobin A1c Test 07/19/16 05:15 Range/Units Estimated Average Glucose 171 mg/dl Hemoglobin A1c 7.6 H 4.5-5.6 % Medical Emergencies . Who to Call and When: Medical Emergencies: If at any time you feel your situation is an emergency, please call 911 immediately. . Non-Emergent Contact Non-Emergency issues call your: Primary Care Provider . . "Provider Documentation" section prepared by Cinthia Briceño. VTE Core Measure Inpt VTE Proph given/why not?: Unfractionated heparin SQ
[2016-07-23 14:45] VITALS: BP 118/75; PULSE 86; TEMP 36.7; O2SAT 98
[2016-07-25] MEDS ORDERED: VANCOMYCIN TROUGH SCH (13:30)
--- NOTE | 2016-07-26 16:00 | Discharge Summary ---
Discharge Summary Date of Service Jul 26, 2016. Discharge Summary Admission Date: Jul 17, 2016 at 15:37 Discharge Date: Jul 23, 2016 Discharge Disposition: Home Principal Diagnosis: RLE cellulitis DMII SUMEET-resolved HTN Depression Hyperlipidemia ETOH abuse Procedures: None. Vaccinations: Pneumovax Consultations: None. Medication Reconciliation New Medications: Doxycycline Hyclate (Doxycycline Hyclate) 100 Mg Cap 100 MG PO BID for 10 Days, #20 CAP Continued Medications: Acetaminophen (Tylenol) 325 Mg Tab 650 MG PO Q6 PRN for Pain or Fever Atorvastatin (Lipitor) 40 Mg Tab 40 MG PO HS, TAB Citalopram Hydrobromide (Celexa) 40 Mg Tab 40 MG PO HS, TAB Glimepiride (Glimepiride) 4 Mg Tab 4 MG PO DAILY for 90 Days, #90 TAB 3 Refills Lisinopril (Lisinopril) 20 Mg Tab 20 MG PO DAILY Omeprazole (Omeprazole) 20 Mg Tab 20 MG PO DAILY Sildenafil Citrate (Pulmonary (Sildenafil) 20 Mg Tab 1 TAB PO UD PRN for intercourse Sitagliptin Phosphate (Januvia) 100 Mg Tab 100 MG PO DAILY, TAB Discontinued Medications: Benzonatate (Tessalon Perles) 100 Mg Cap 1 CAP PO TID PRN for Cough for 10 Days, #30 CAP Prednisone (Prednisone) 20 Mg Tab 2 TAB PO DAILY, #5 TAB Admission Information HPI (per Admitting provider): This is a 61 year old male with PMH of DM type 2, hypertension, obesity, depression, and other problems listed below who presents to the ED with right lower extremity pain. Approximately 4 days ago patient became ill with fever up to 103, postnasal drip, cough with white sputum, and right thigh "soreness". He was seen in clinic by Madhavi Wilkerson PA-C 3 days ago and was started on prednisone and Tessalon Perles for suspected viral illness. Influenza PCR was negative. Cough has improved. Patient did not mention the thigh pain in clinic because it was mild. Then over past few days thigh pain worsened and has become severe. Starting 2 days ago noticed erythema of the right thigh which has been increasing in area. He has a small healing abrasion on right anterior knee from scraping it on concrete while kneeling working in his garage. He persists with fever up to 103.2 at home this morning and 105 at an urgent care today before presenting to ER. He also reports chills, fatigue, and decreased PO intake, dizziness upon standing. Had dysuria a few days ago which resolved. Denies nasal congestion, ear ache, sore throat, chest pain, palpitations, SOB, nausea, vomiting, diarrhea, urinary frequency. He denies recent antibiotics or hospitalization. Physical Exam (per Admitting): General Appearance: + obese, + pertinent finding (acutely ill appearing obese 61 year old male, not in distress) Head: normocephalic, atraumatic Eyes: normal inspection, PERRL, EOMI ENT: normal ENT inspection, hearing grossly normal, TMs normal, pharynx normal Neck: supple, trachea midline Respiratory/Chest: lungs clear, normal breath sounds, no respiratory distress, no accessory muscle use Cardiovascular: regular rate, rhythm, no murmur Abdomen/GI: normal bowel sounds, non tender, soft Extremities/Musculoskelatal: no pedal edema, + pertinent finding (no swelling of the right knee joint. right knee without pain on ROM) Neurologic/Psych: alert, normal mood/affect, oriented x 3, + pertinent finding (grossly nonfocal ) Skin: + pertinent finding (large area of erythema, warmth, and tenderness extending from anterior to medial and lateral right thigh. there is a small area of brighter erythema on the right medial thigh which is slightly indurated. no fluctuance appreciated. additionally on the anterior knee has a scabbed abrasion with small area of surrounding erthema and tenderness. 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 1. RLE cellulitis- Cellulitis continues to improve. BCx are negative and he remains hemodynamically stable and afebrile overnight. It appears this wound originated from chafing (as evidenced by the blistering) that was repetitive while driving his truck to and from [place] recently. Will change to PO doxycycline at this time. If continues to improve would send him home tmrw or next day. 2. DMII-cont ISS coverage and appreciate inpatient glycemic pharmacist management--meeting inpatient goals 3. SUMEET-resolved. 4. HTN-Controlled, cont lisinopril 5. Depression-stable on Celexa 6. Hyperlipidemia-cont Lipitor per home regimen 7. ETOH abuse-extensive per . Placed him on ETOH withdrawal protocol with gabapentin. No apparent withdrawal at this time. Total time spent on discharge = 60 minutes This includes examination of the patient, discharge planning, medication reconciliation, and communication with other providers. Discharge Instructions Discharge Instructions Date of Service Jul 23, 2016. Admission Reason for Admission: Cellulitis, Sepsis Discharge Discharge Diagnosis / Problem: Cellulitis of L upper thigh Discharge Goals Goal(s): Prevent Disease Progression Activity Recommendations Activity Limitations: per Instructions/Follow-up section . Instructions / Follow-Up Instructions / Follow-Up Please complete entire course of doxycycline (antibiotic) as prescribed. For your wound, cleanse daily with water as tolerated and keep Aquacel (blue gauze) in place and change every other day covered with regular dry gauze as instructed by the wound care nurse. Wear loose-fitting clothes until completely healed. You have an appointment with Dr. Jessie Nelson in the [place] office on at 11:10am. Please bring all paperwork from this hospitalization with you. It was a pleasure taking care of you! Call if you have any questions or problems. You can reach a [facility] hospitalist on duty at [facility] 24 hours a day by calling [phone]. Take care of yourself. Cinthia Briceño, [facility] Hospitalist Current Hospital Diet Patient's current hospital diet: AHA Diet (Heart Healthy), Diabetes Type 2 Diet Discharge Diet Recommended Diet: AHA Diet (Heart Healthy), Diabetes Type 2 Diet Pending Studies Studies pending at discharge: yes List of pending studies: Superficial wound culture Laboratory Results Hemoglobin A1c Test 07/19/16 05:15 Range/Units Estimated Average Glucose 171 mg/dl Hemoglobin A1c 7.6 H 4.5-5.6 % Medical Emergencies . Who to Call and When: Medical Emergencies: If at any time you feel your situation is an emergency, please call 911 immediately. . Non-Emergent Contact Non-Emergency issues call your: Primary Care Provider . . "Provider Documentation" section prepared by Cinthia Briceño. VTE Core Measure Inpt VTE Proph given/why not?: Unfractionated heparin SQ Additional Copies To Jessie Nelson D.O.
[2016-07-29] MEDS ORDERED: GABA-112 PO (07:48)
[2016-07-29] MEDS ORDERED: SITA100T3 PO (07:48)
== END 2016-07-23 16:03 | disposition home or self-care (01) | DRG 872 ==
LOC: ENRESERVDT → ENRESERVTM → C.EDB 13:45 → EDBD 13:45 → C.MED 15:37 → C.4E 07-20 21:05
PROVIDERS: ADMIT Internal Medicine; ATTEND Hospitalist
DX: A41.9 Sepsis, unspecified organism (principal); L03.115 Cellulitis of right lower limb; N17.9 Acute kidney failure, unspecified; E11.9 Type 2 diabetes mellitus without complications; I10 Essential (primary) hypertension; E66.9 Obesity, unspecified; F32.9 Major depressive disorder, single episode, unspecified; N28.1 Cyst of kidney, acquired; Z83.3 Family history of diabetes mellitus; Z80.0 Family history of malignant neoplasm of digestive organs; Z82.49 Family history of ischemic heart disease and other diseases of the circulatory system; Z88.6 Allergy status to analgesic agent; E78.5 Hyperlipidemia, unspecified; F10.10 Alcohol abuse, uncomplicated